=== PATIENT | male | born 1940 | race Caucasian/White ===

== ENCOUNTER 2020-02-03 18:09 | Emergency (ER) | payer MEDICARE, SELFPAY ==
--- NOTE | 2020-02-03 18:24 | ED.GENADULT ---
HPI - General Adult General Chief complaint: Wound/Laceration Stated complaint: laceration on finger Time Seen by Provider: 02/03/20 18:25 Source: patient and RN notes reviewed Mode of arrival: ambulatory Limitations: no limitations History of Present Illness HPI narrative: 79-year-old male presents concern for laceration to the second digit of his left hand that he sustained prior to arrival while using a bark grinder. He denies decreased sensation, decreased range of motion, decreased strength to the digit. He is not up-to-date on his tetanus vaccination. MD complaint: Finger laceration Related Data Home Medications Medication Instructions Recorded Confirmed aspirin 81 mg tablet,delayed 81 mg PO DAILY 09/29/19 02/03/20 release calcium carbonate 600 mg calcium 600 mg PO DAILY 12/08/19 02/03/20 (1,500 mg) tablet cholecalciferol (vitamin D3) 125 125 mcg PO DAILY 12/08/19 02/03/20 mcg (5,000 unit) capsule finasteride 5 mg tablet 5 mg PO DAILY 12/08/19 02/03/20 Allergies Allergy/AdvReac Type Severity Reaction Status Date / Time sulfamethizole Allergy Unknown hives Verified 02/03/20 18:13 sulfamethoxazole Allergy Unknown Hives / Verified 02/03/20 18:13 Red Face trimethoprim Allergy Unknown hives Verified 02/03/20 18:13 lisinopril AdvReac Intermediate cough Verified 02/03/20 18:13 Review of Systems Review of Systems: Narrative: CONSTITUTIONAL: Denies malaise, chills, sweats, or fever. CARDIOVASCULAR: Denies chest pain, palpitations RESPIRATORY: Denies dyspnea. SKIN: Reports laceration to the second digit of the left hand MUSCULOSKELETAL: Denies decreased strength, decreased range of motion to digit NEUROLOGIC: Denies numbness, weakness All systems reviewed & are unremarkable except as noted in HPI and below PMFSH Past Medical History Medical History (Updated 02/03/20 @ 19:03 by Shanti Miller NP) BP (high blood pressure) BPH associated with nocturia CAD (coronary artery disease) GERD (gastroesophageal reflux disease) Hammer toes of both feet Prostate CA Surgical History Surgical History (Updated 09/29/19 @ 20:38 by Adelaida Baugh MD) Status post radiation therapy Social History Social History (Updated 12/08/19 @ 11:10 by Dori Saxena Social History: Smoking status: Never smoker Second hand tobacco smoke exposure: No Alcohol intake: current Substance use: never Substance use type: does not use Gender identity (if verbalized by the patient): Male Comments At time of signature, agree with nursing past medical, surgical, social and family history. There is no relevant family history pertinent to the presenting complaint Exam Narrative: Exam Narrative: GENERAL: Well-appearing, well-nourished, and in no acute distress. HEAD: Normocephalic, atraumatic. EYES: PERRLA, conjunctivae clear NECK: Supple. CHEST: Speaks in full sentences. No respiratory distress. HEART: Regular rate and rhythm. Normal and equal peripheral pulses. EXTREMITIES: Right second digit has normal strength and sensation. 5/5 strength with digit flexion, extension. Range of motion normal. No clubbing, cyanosis, or edema noted. No tenderness. Skin intact. Normal digital cascade with flexion of fingers, median, ulnar and radial nerve intact. Normal sensation of each side of finger. Can perform 'okay' sign, 'cross over finger test of index and middle fingers' and 'thumbs up' sign. No scissoring. Normal thumb opposition. Good capillary refill and radial pulse. Distal capillary refill ?3 seconds. SKIN: Warm, dry, no rash. 2.5 cm linear, slightly irregular laceration into the deep tissue noted to the second digit of the left hand NEURO: Alert and oriented x3. PSYCH: Normal mood and affect Course Course Emergency Course: Patient is aware of diagnosis, understands and agrees to treatment plan. Anticipatory guidance given. Patient agrees to follow-up as directed and is aware of reasons to seek care
[2020-02-03 18:26] VITALS: BP 168/72; PULSE 85; RESP 20; TEMP 37.5; O2SAT 96
--- NOTE | 2020-02-03 19:01 | PC.NURSE ---
Unable to chart the Tetanus vaccination in the Dec. Lot #[id number] Exp: 09/28/20 Creative Writing Teacher: [employer]
== END 2020-02-03 19:10 | disposition home or self-care (01) ==
PROVIDERS: Emergency Provider Nurse Practitioner; PCP Family Medicine
DX: S61.211A Laceration without foreign body of left index finger without damage to nail, initial encounter (principal); W29.8XXA Contact with other powered hand tools and household machinery, initial encounter; Z23 Encounter for immunization; I10 Essential (primary) hypertension; N40.0 Benign prostatic hyperplasia without lower urinary tract symptoms; I25.10 Atherosclerotic heart disease of native coronary artery without angina pectoris; K21.9 Gastro-esophageal reflux disease without esophagitis; Z85.46 Personal history of malignant neoplasm of prostate
CPT/HCPCS: 12041; 90471; 90715; 99212; G0463

== ENCOUNTER 2020-07-29 23:23 | Emergency (ER) | payer MEDICARE, SELFPAY ==
--- NOTE | ~2020-07-29 | XR_ITS ---
XR chest 2V DATE: 07/30/2020 00:53 INDICATION: Shortness of breath, hypertension. History of coronary artery disease TECHNIQUE: PA and lateral views COMPARISON: 10/14/2018 PA and lateral chest FINDINGS: Mild cardiomegaly. Garfield B-lines are identified bilaterally, which may be an indication of pulmonary interstitial edema, interstitial pneumonitis or interstitial fibrosis. There is mild pulmo nary vascular congestion and redistribution, which favors interstitial edema. Aortic calcification and mild unfolding. There is minimal infiltrate or atelectasis in the lower lung zones. Diffuse osteopenia. There are multiple compression fracture deformities of the thoracic and lumbar spine. IMPRESSION: Cardiomegaly, mild congestive heart failure Mild bilateral lower lung infiltrate and/atelectasis Reviewed, dictated and finalized at location A.
[2020-07-29 23:26] VITALS: BP 221/98; PULSE 90; RESP 18; TEMP 36.4; O2SAT 98
[2020-07-29 23:39] VITALS: BP 170/102; PULSE 85; RESP 25; TEMP 36.6; O2SAT 97
--- NOTE | 2020-07-30 00:20 | ECG_ITS ---
Measurements Intervals [place] Rate: 83 P: 86 NM: 248 QRS: -40 QRSD: 105 T: 60 QT: 378 QTc: 444 Interpretive Statements SINUS RHYTHM WITH FIRST DEGREE AV BLOCK ATRIAL AND VENTRICULAR PREMATURE COMPLEXES LEFT AXIS DEVIATION INCOMPLETE RIGHT BUNDLE BRANCH BLOCK DELAYED PRECORDIAL R/S TRANSITION BASELINE ARTIFACT- I, II, III, AVR, AVL ABNORMAL ECG Electronically Signed On 07-30-2020 6:55:31 CDT by Christophe Taylor D.O.
[2020-07-30 00:47] LABS: Alanine Aminotransferase 21 U/L (4-50); Albumin Level 4.5 g/dL (3.5-5.1); Alkaline Phosphatase 60 U/L (38-126); Anion Gap 8 mmol/L (8-16); Aspartate Amino Transferase 19 U/L (17-59); Basophils Absolute Auto 0.1 K/mm3 (0.0-0.1); Basophils Percent Auto 0.6 % (0.2-1.2); Blood Urea Nitrogen 14 mg/dL (9-20); Calcium 9.3 mg/dL (8.4-10.2); Carbon Dioxide 31 mmol/L (22-30); Chloride 103 mmol/L (98-107); Eosinophils Absolute Auto 0.2 K/mm3 (0-0.3); Eosinophils Percent Auto 2.7 % (0-4.4); Estimated Glomerular Filt Rate > 60; Glucose 141 mg/dL (75-110); Hematocrit 42.7 % (42.0-52.0); Hemoglobin 14.5 g/dL (14.0-18.0); Immature Granulocyte Absolute 0.02 K/mm3 (0.00-0.031); Immature Granulocyte Percent A 0.2 % (0-0.5); Lymphocytes Absolute Auto 2.34 K/mm3 (0.9-3.2); Lymphocytes Percent Auto 27.7 % (18.3-44.2); Mean Corpuscular Hemoglobin 33.4 pg (26-34); Mean Corpuscular Volume 98.4 fl (80-100); Mean Platelet Volume 12.5 fl (7.4-10.4); Monocytes Absolute Auto 0.8 K/mm3 (0.1-0.6); Monocytes Percent Auto 9.1 % (2.6-8.5); Neutrophils Percent Auto 59.7 % (45.5-73.1); Platelet Count Result 142 k/mm3 (150-375); Potassium 3.6 mmol/L (3.4-5.0); Red Blood Count 4.34 M/mm3 (4.6-6.20); Red Cell Distribution Width 12.6 % (11.5-14.5); Sodium 142 mmol/L (137-145); White Blood Count 8.5 K/mm3 (4.5-10.0)
[2020-07-30 01:05] VITALS: BP 168/72; PULSE 59; RESP 16; O2SAT 97
--- NOTE | 2020-07-30 01:36 | ED.RECABL ---
HPI - Recheck/Abnormal Lab/Rx General Chief Complaint: Recheck/Abnormal Lab/Rx Stated Complaint: high bp Time Seen by Provider: 07/29/20 23:33 Source: patient Mode of arrival: ambulatory Limitations: no limitations History of Present Illness HPI narrative: This patient is a 79 year old male with history of hypertension who presents for evaluation of an elevated blood pressure. He has been checking his blood pressure every day for a few weeks. He states this morning his blood pressure was elevated to 190s so he took clonidine 0.1 mg. He has been prescribed clonidine to take as needed. He reports he checked his blood pressure tonight and it was still elevated so he came to ER because he did not want to have a stroke. He takes metoprolol 50 mg daily but he did not take that medication today because he took clonidine. His medication list also some losartan and lisinopril with HCTZ but he does not think he takes those medications. He denies chest pain, headache, dizziness. He does report he has been sob intermittent over the past couple of days. He is not sure of any exacerbating factors. He denies history of heart disease. He states he had a normal cardiac catheterization 3 years ago. complaint: other (elevated blood pressure) Related Data Home Medications Medication Instructions Recorded Confirmed aspirin 81 mg tablet,delayed 81 mg PO DAILY 09/29/19 02/03/20 release finasteride 5 mg tablet 5 mg PO DAILY 12/08/19 02/03/20 clonidine HCl 0.1 mg PO ONCE 07/29/20 ipratropium-albuterol [Combivent 1 puff INHALATION QID 07/29/20 Respimat] metoprolol succinate 25 mg PO QAM 07/29/20 triamcinolone acetonide TOPICAL 07/29/20 Allergies Allergy/AdvReac Type Severity Reaction Status Date / Time sulfamethizole Allergy Unknown hives Verified 07/29/20 23:42 sulfamethoxazole Allergy Unknown Hives / Verified 07/29/20 23:42 Red Face trimethoprim Allergy Unknown hives Verified 07/29/20 23:42 lisinopril AdvReac Intermediate cough Verified 07/29/20 23:42 Review of Systems Review of Systems: All systems reviewed & are unremarkable except as noted in HPI and below Constitutional: Constitutional: Denies chills and Denies fever(s) Cardiovascular: Cardiovascular: Denies chest pain Respiratory: Respiratory: Denies cough and Reports dyspnea Gastrointestinal: Gastrointestinal: Denies abdominal pain, Denies nausea and Denies vomiting [facility] Surgical History Surgical History (Updated 09/29/19 @ 20:38 by Adelaida Baugh MD) Status post radiation therapy Social History Social History Social History: Smoking status: Never smoker Second hand tobacco smoke exposure: No Alcohol intake: current Substance use: never Substance use type: does not use Gender identity (if verbalized by the patient): Male Exam Const: General: no acute distress and alert Orientation/consciousness: patient oriented x3 Eyes: Pupils: Equal, round and reactive pupils present EOM: EOMs intact bilaterally Neck: Neck: no lymphadenopathy Resp: Effort & Inspection: normal respiratory effort and no retractions Auscultation: clear to auscultation bilaterally Cardio: Rate: regular rate Rhythm: regular rhythm Heart sounds: no murmurs GI: GI Palp: Yes Soft to palpation, No Tenderness to palpation present (GI), No Guarding due to palpation present (GI), No Rigid due to palpation and Yes No hepatosplenomegaly present Skin: General skin exam: normal color Rashes: no rashes Neuro: General: patient oriented x3 and moves all extremities Extrem: General: edema bilateral (trace edema) Course Reevaluation(s) Reevaluation #1: PAtient has an appointment with PCP today. He denies having sob currently. He is laying flat in bed in no distress and denies any sob. He does have mild lower extremity edema. He may have some pulmonary edema on xray. Since BP 160
[2020-07-30 02:07] LABS: D Dimer < 0.22 ug/mL (<0.48)
[2020-07-30 02:14] LABS: NT Pro B Type Natriuretic Pept 1490 PG/ML (5-100)
[2020-07-30] MEDS: FUROSEMIDE INJ 40 MG/4 ML VIAL IV PUSH (02:37)
[2020-07-30 02:38] VITALS: BP 167/72; PULSE 61; RESP 20; O2SAT 98
[2020-07-30 03:52] VITALS: BP 159/74; PULSE 61; RESP 12; O2SAT 99
== END 2020-07-30 03:48 | disposition home or self-care (01) ==
PROVIDERS: Emergency Provider General Practice; PCP Family Medicine
DX: I10 Essential (primary) hypertension (principal); Z85.46 Personal history of malignant neoplasm of prostate; Z92.3 Personal history of irradiation; I25.10 Atherosclerotic heart disease of native coronary artery without angina pectoris; K21.9 Gastro-esophageal reflux disease without esophagitis; Z79.82 Long term (current) use of aspirin; I44.0 Atrioventricular block, first degree; I49.1 Atrial premature depolarization; I49.3 Ventricular premature depolarization; I45.10 Unspecified right bundle-branch block; R06.02 Shortness of breath
CPT/HCPCS: 36415; 71046; 80053; 83880; 84484; 85025; 85380; 93005; 96374; 99284; J1940

== ENCOUNTER 2020-09-22 10:30 | Emergency (ER) | payer MEDICARE, SELFPAY ==
--- NOTE | ~2020-09-22 | XR_ITS ---
XR hip LT min 2V DATE: 09/22/2020 11:25 INDICATION: Left hip pain, sudden onset 2 days ago. TECHNIQUE: AP and lateral views COMPARISON: None FINDINGS: There is mild chondrocalcinosis of left hip joint. No fracture or dislocation, avascular necrosis or bone destruction is evident. There is mild left hip osteoarthritis Status post posterior L4-5 spinal fusion. Severe degenerative disc disease at L5-S1. Several surgical clips overlie the pubic area. There is extensive iliac and femoral artery calcification. IMPRESSION: Chondrocalcinosis of left hip Mild osteoarthritis of the left hip joint Reviewed, dictated and finalized at location A. E RIGGER
[2020-09-22 10:46] VITALS: BP 139/60; PULSE 61; RESP 20; TEMP 36.9; O2SAT 100
--- NOTE | 2020-09-22 10:47 | ED.GENADULT ---
HPI - General Adult General Chief complaint: Extremity Problem,Nontraumatic Stated complaint: hip pain Time Seen by Provider: 09/22/20 10:47 Source: patient and RN notes reviewed Mode of arrival: ambulatory Limitations: no limitations History of Present Illness HPI narrative: 79 year old male who presents to [facility] care with complaints of severe pain to his left hip since evening with no stated injury. Patient states history of back fusion in the past and history of prostate cancer which was treated with radiation. Patient was recently seen by cardiology and started on Xarelto for irregular heart rhythm. Patient denies pain radiating down leg, denies any tingling or numbness to his left leg. Patient also reports that son in law just diagnosed with COVID on Thursday and daughter thinks she may have it and he had been around his daughter on but she was wearing a mask, patient denies any COVID symptoms at this time, cautioned that he should probably quarantine himself. MD complaint: left hip pain Onset (ago): day(s) (3) Location: left (hip) Radiation: non-radiation Severity: severe Severity scale (1-10): 9 Quality: sharp Relieving factors: rest Exacerbating factors: movement Associated symptoms: denies other symptoms Treatments prior to arrival: none Related Data Home Medications Medication Instructions Recorded Confirmed aspirin 81 mg tablet,delayed 81 mg PO DAILY 09/29/19 09/22/20 release rivaroxaban [Xarelto] 20 mg DAILY 09/22/20 09/22/20 Allergies Allergy/AdvReac Type Severity Reaction Status Date / Time sulfamethizole Allergy Unknown hives Verified 08/28/20 14:17 sulfamethoxazole Allergy Unknown Hives / Verified 08/28/20 14:17 Red Face trimethoprim Allergy Unknown hives Verified 08/28/20 14:17 lisinopril AdvReac Intermediate cough Verified 08/28/20 14:17 Review of Systems Review of Systems: Narrative: CONSTITUTIONAL: Denies fever, chills, or sweats. EYES: Denies visual changes, redness, or discharge. ENT: Denies rhinorrhea, congestion, sore throat, or otalgia.No lack of taste or smell CARDIOVASCULAR: Denies chest pain, palpitations, mild edema left ankle. RESPIRATORY: Denies cough or dyspnea.SAO2 100% on room air GASTROINTESTINAL: Denies abdominal pain, nausea, vomiting, or diarrhea. GENITOURINARY: Denies dysuria or hematuria. SKIN: Denies rash or itching. MUSCULOSKELETAL: Chronic back pain,severe left hip joint pain, or myalgia. NEUROLOGIC: Denies headache, numbness, or weakness. PSYCHIATRIC: Denies anxiety or depression.some forgetfulness. All systems reviewed & are unremarkable except as noted in HPI and below PMFSH Past Medical History Medical History (Updated 09/22/20 @ 12:41 by Margarette Banda NP) Acute diastolic CHF (congestive heart failure), NYHA class 2 BP (high blood pressure) BPH associated with nocturia CAD (coronary artery disease) GERD (gastroesophageal reflux disease) Hammer toes of both feet Irregular heart beat Prostate CA Surgical History Surgical History (Updated 09/22/20 @ 12:06 by Margarette Banda NP) History of lumbar spinal fusion Status post radiation therapy Family History Family History (Updated 09/22/20 @ 12:08 by Margarette Banda NP) Father Malignant neoplasm of prostate Heart disease Sibling Malignant neoplasm of prostate Heart disease Social History Social History (Updated 09/22/20 @ 12:06 by Margarette Banda NP) Social History: Smoking status: Never smoker Second hand tobacco smoke exposure: No Alcohol intake: never Substance use: never Substance use type: does not use Living arrangements: alone Gender identity (if verbalized by the patient): Male Comments At time of signature, agree with nursing past medical, surgical, social and family history. There is no relevant family history pertinent to the presenting complaint Exam Narrative: Exam Narrative: GENERAL: Well-appearing, well-nourished,
[2020-09-22] MEDS: methylPREDNISolone ACETATE 40 MG/ML VIAL IM (11:39)
--- NOTE | 2020-09-22 11:52 | PC.NURSE ---
Margarette KO called and spoke with son.
== END 2020-09-22 12:14 | disposition home or self-care (01) ==
PROVIDERS: Emergency Provider Registered Nurse; PCP Family Medicine
DX: M25.552 Pain in left hip (principal); M11.252 Other chondrocalcinosis, left hip; M16.12 Unilateral primary osteoarthritis, left hip; Z85.46 Personal history of malignant neoplasm of prostate; Z79.01 Long term (current) use of anticoagulants; I49.9 Cardiac arrhythmia, unspecified; I11.0 Hypertensive heart disease with heart failure; I50.9 Heart failure, unspecified; I25.10 Atherosclerotic heart disease of native coronary artery without angina pectoris; K21.9 Gastro-esophageal reflux disease without esophagitis
CPT/HCPCS: 73502; 96372; 99213; G0463; J1030

== ENCOUNTER 2021-03-04 12:26 | Emergency (ER) | payer MEDICARE, SELFPAY ==
--- NOTE | ~2021-03-04 | XR_ITS ---
XR shoulder LT min 2V DATE: 03/04/2021 13:42 INDICATION: Fall 5 days ago; left shoulder pain TECHNIQUE: 4 views COMPARISON: 06/14/2009 left shoulder FINDINGS: There is diffuse osteopenia. No fracture or dislocation, periosteal reaction or bone destruction or abnormal soft tissue calcifica tion is evident. Normal alignment at the left acromioclavicular and glenohumeral joints. Degenerative disc disease of the lower cervical and cervicothoracic spine. Thoracic scoliosis. Cardiomegaly and aortic atherosclerosis. IMPRESSION: Osteopenia No fracture or dislocation of the left shoulder is evident Reviewed, dictated and finalized at location A.
[2021-03-04 13:08] VITALS: BP 129/64; PULSE 62; RESP 16; TEMP 36.2; O2SAT 98
--- NOTE | 2021-03-04 13:17 | ED.UPPEXIN ---
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 Patient reports that he was putting down plastic and a stone bed when he tripped and hit his shoulder. Did not hit head. Denies neck and back pain. Denies chest pain/ SOB. Decreased ROM of the left shoulder. States that he had rotator cuff issues years ago and they would not do surgery on him because of age. States he is always had a decreased range of motion however it is worse. Related Data Home Medications Medication Instructions Recorded Confirmed ketoconazole 2 % shampoo TOPICAL 12/05/20 12/05/20 apixaban [Eliquis] mg 03/04/21 Allergies Allergy/AdvReac Type Severity Reaction Status Date / Time lisinopril Allergy Mild cough Verified 12/05/20 14:04 sulfamethizole Allergy Mild hives Verified 12/05/20 14:04 sulfamethoxazole Allergy Mild Hives / Verified 12/05/20 14:04 Red Face trimethoprim Allergy Mild hives Verified 12/05/20 14:04 Review of Systems Review of Systems: All systems reviewed & are unremarkable except as noted in HPI and below Constitutional: Constitutional: Reports no additional constitutional complaints Eyes: Eyes: Reports no additional eye complaints ENT: Reports system reviewed and no additional complaints, except as documented Cardiovascular: Cardiovascular: Reports no additional cardiovascular complaints and Denies chest pain Respiratory: Respiratory: Reports no additional respiratory complaints, Denies cough, Denies dyspnea and Denies wheezing Gastrointestinal: Gastrointestinal: Reports no additional gastrointestinal complaints, Denies abdominal pain, Denies nausea and Denies vomiting Musculoskeletal: Musculoskeletal: Reports as per HPI, Denies back pain, Reports arthralgias (Left shoulder) and Denies muscle cramps Integumentary/Breasts: Skin/Breast: Reports system reviewed and no additional complaints, except as docu Neurologic: Reports system reviewed and no additional complaints, except as documented, Denies dizziness, Denies syncope, Denies headache(s), Denies focal weakness, Denies numbness and Denies weakness [facility] Past Medical History Medical History (Updated 03/04/21 @ 14:00 by Shanti Powell) Acute diastolic CHF (congestive heart failure), NYHA class 2 BP (high blood pressure) BPH associated with nocturia CAD (coronary artery disease) GERD (gastroesophageal reflux disease) Hammer toes of both feet Irregular heart beat Prostate CA Surgical History Surgical History Amputated toe of left foot History of lumbar spinal fusion Status post radiation therapy Family History Family History Father Malignant neoplasm of prostate Heart disease Sibling Malignant neoplasm of prostate Heart disease Social History Social History Social History: Second hand tobacco smoke exposure: No Alcohol intake: never Substance use: never Substance use type: does not use Gender identity (if verbalized by the patient): Male Comments At the time of my signature, I reviewed and agree with the nursing past medical, surgical, social, and family history. There is no relevant family history pertinent to the patient complaint. Exam Const: General: healthy appearing, no acute distress and alert Nutritional Appearance: well nourished Orientation/consciousness: patient oriented x3 Other: Appears in mild discomfort Neck: Neck: normal visual inspection Chest: Chest palpation & inspection: normal inspection of th
== END 2021-03-04 14:02 | disposition home or self-care (01) ==
PROVIDERS: Emergency Provider Nurse Practitioner; PCP Family Medicine
DX: M25.512 Pain in left shoulder (principal); I11.0 Hypertensive heart disease with heart failure; I50.9 Heart failure, unspecified; I25.10 Atherosclerotic heart disease of native coronary artery without angina pectoris; K21.9 Gastro-esophageal reflux disease without esophagitis; Z85.46 Personal history of malignant neoplasm of prostate
CPT/HCPCS: 73030; 99213; A4565; G0463

== ENCOUNTER 2021-09-06 13:16 | Outpatient (CLI) | payer MEDICARE, SELFPAY ==
--- NOTE | ~2021-09-06 | MMUS_ITS ---
EXAMINATION: US breast RT complete, MM diagnostic mammo unilat RT HISTORY: Right breast lump TECHNIQUE: MLO and cc views of right breast; comparison MLO view of left breast. CAD analysis was sub mitted and interpreted. High resolution right complete breast ultrasound including all 4 quadrants an d subareolar area was performed. COMPARISON: None BREAST PARENCHYMAL COMPOSITION: There are scattered areas of fibroglandular density. FINDINGS: MAMMOGRAPHIC FINDINGS: Bilateral gynecomastia, mild on the right, minimal on the left. No suspicious mass, architectural distortion, malignant calcification, skin thickening or retraction is detected. ULTRASOUND: No suspicious mass or shadowing is detected. IMPRESSION: Mild right gynecomastia, minimal left gynecomastia BI-RADS Category 2: Benign finding(s). Reviewed, dictated and finalized at location A. E LINING CURER IMPRESSION: Mild right gynecomastia, minimal left gynecomastia BI-RADS Category 2: Benign finding(s).
== END 2021-09-06 13:17 | disposition home or self-care (01) ==
PROVIDERS: PCP Family Medicine; Visit Provider Physician Assistant
DX: N63.10 Unspecified lump in the right breast, unspecified quadrant (principal); N62 Hypertrophy of breast
CPT/HCPCS: 76641; 77065

== ENCOUNTER 2021-12-31 12:39 | Outpatient (CLI) | payer MEDICARE, SELFPAY ==
--- NOTE | ~2021-12-31 | MR_ITS ---
EXAMINATION: MRA brain wo con EXAM DATE: 12/31/2021 14:48 INDICATION: TIA, Episode Of Visual Disturbance . TECHNIQUE: 3-D [id number] MRA of the intracranial arteries was performed without contrast. There is no prior study for comparison. FINDINGS: Study is limited due to patient motion. There is normal flow related signal seen within the vertebral, basilar and internal carotid arteries. There is no proximal stenosis. There are no aneurysms identified. Both A1 and P1 segments are pat ent. Flow in the cerebral arteries is symmetric. Left vertebral artery is dominant. IMPRESSION: Normal MRA brain exam. Reviewed, dictated and finalized at location A. AND G[employer]TER LABORER IMPRESSION: Normal MRA brain exam.
--- NOTE | ~2021-12-31 | MR_ITS ---
EXAMINATION: MR brain/brain stem wo/w con EXAM DATE: 12/31/2021 14:48 INDICATION: TIA, Episode Of Visual Disturbance . TECHNIQUE: Magnetic resonance imaging (MRI) of the brain/brain stem obtained without contrast. Sagit ara T1, axial diffusion, gradient echo (T2*), T1, T2, FLAIR sequences obtained. Patient was then inj ected with 15 cc intravenous Multihance contrast. Axial and coronal postcontrast T1 weighted sequence s obtained. There is no prior study for comparison. FINDINGS: Signal abnormality in the left parotid gland measuring 1 cm, could be parotid mass or intra parotid lymph node. This could be cystic. Consider follow-up nonemergent CT neck or soft tissue ultra sound. There are no areas of restricted diffusion to suggest acute infarction. There is no acute hem orrhage seen on the T2*, a hemosiderin sensitive sequence. No intraparenchymal brain mass lesion. T here is moderate periventricular and subcortical T2/FLAIR signal hyperintensity, nonspecific but prob ably related to small vessel ischemic disease (microangiopathy). There is mild prominence of the alfaro lci and ventricles related to cerebral atrophy. There are no extra-axial collections. Flow voids a re seen in the cerebral arteries on the T2-weighted sequences consistent with their expected patency. The orbits are unremarkable. There are no areas of abnormal enhancement on the postcontrast image s. IMPRESSION: 1. No acute intracranial findings. 2. Chronic age related findings. 3. Incidental left parotid mass; consider ENT consult, CT neck with contrast, or soft tissue ultraso und. Reviewed, dictated and finalized at location A. UITWARE BRUSHER IMPRESSION: 1. No acute intracranial findings. 2. Chronic age related findings. 3. Incidental left parotid mass; consider ENT consult, CT neck with contrast, or soft tissue ultrasound.
--- NOTE | ~2021-12-31 | MR_ITS ---
EXAMINATION: MRA neck wo/w con EXAM DATE: 12/31/2021 14:48 INDICATION: TIA, Episode Of Visual Disturbance TECHNIQUE: Magnetic resonance angiography (MRA) of the neck was performed. Sequences included axial 2 D-time of flight T1-weighted FSPGR and coronal T1-weighted FSPGR without and then following injection of 50 mL MultiHance intravenous contrast. There is no prior study for comparison. FINDINGS: Left vertebral artery is dominant. There is 0% stenosis of the right carotid bulb relative to normal distal artery lumen diameter (NASCE T criteria). There is 0% stenosis of the left carotid bulb relative to normal distal artery lumen di ameter. Small left parotid mass, possibly cystic. IMPRESSION: 1. 0% stenosis of the right carotid bulb. 2. 0% stenosis of the left carotid bulb. Reviewed, dictated and finalized at location A. RONMENTAL HEALTH AND SAFETY MANAGER
[2021-12-31 13:35] LABS: Estimated Glomerular Filt Rate > 60
== END 2021-12-31 12:40 | disposition home or self-care (01) ==
LOC: ANHIMG 12:40
PROVIDERS: PCP Family Medicine; Visit Provider Internal Medicine Cardiovascular Disease
DX: G45.9 Transient cerebral ischemic attack, unspecified (principal); D11.0 Benign neoplasm of parotid gland; H53.8 Other visual disturbances
CPT/HCPCS: 70544; 70549; 70553; A9577

== ENCOUNTER 2022-06-06 14:33 | Outpatient (CLI) | payer MEDICARE, SELFPAY ==
--- NOTE | ~2022-06-06 | XR_ITS ---
XR sacroiliac joints min 3V 06/06/2022 15:08 Indication: Abnormal immunologic findings. Chronic pain. Procedure: 3 views of the sacroiliac joints Comparison: No prior studies for comparison. Findings: There is mild bilateral symmetric degenerative change of the sacroiliac joints. No erosive changes or ankylosis. There are spinal fusion changes of the lumbar spine. Osteopenia. Mild osteoarth ritis of the hips. Impression: 1: Mild bilateral symmetric degenerative change of the sacroiliac joints. Reviewed, dictated and finalized at location A. Impression: 1: Mild bilateral symmetric degenerative change of the sacroiliac joints.
--- NOTE | ~2022-06-06 | XR_ITS ---
XR lumbar spine 2-3V DATE: 06/06/2022 15:08 INDICATION: Chronic back pain TECHNIQUE: AP, lateral and coned lateral lumbosacral views COMPARISON: 10/14/2018 CT abdomen pelvis FINDINGS: There is diffuse osteopenia. Chronic mild anterior wedging at T10, T11 and T12, stable since 10/14/2018. Chronic mild compression fracture deformity of L2, stable since 10/14/2018. Status post posterior surgical fusion by pedicle screws and rods at L3-L5. Moderate degenerative disc disease at L2-3. Severe degenerative disc disease at L5-S1. No interval fracture since 10/14/2018 is detected. The sacroiliac joints are intact. There is extensive calcification of the abdominal aorta and common iliac arteries, without evidence o f aneurysm. IMPRESSION: Stable mild anterior wedging of T10, T11 and T12 and chronic mild compression fracture de formity of L2, not significantly changed since 10/14/2018 Osteopenia Posterior surgical fusion at L3-L5 is again noted Reviewed, dictated and finalized at location B. IMPRESSION: Stable mild anterior wedging of T10, T11 and T12 and chronic mild c ompression fracture deformity of L2, not significantly changed since 10/14/2018 Osteopenia Posterior surgical fusion at L3-L5 is again noted
[2022-06-06 15:54] LABS: Appearance Urine Clear (Clear); Bilirubin Urine Negative (Negative); Blood Urine Negative (Negative); Color Urine Yellow (Yellow); Glucose Urine UA Negative (Negative); Ketones Urine Negative (Negative); Leukocyte Esterase Ur Negative LEU/UL (Negative); Nitrate Urine Negative (Negative); Protein Urine Negative (Negative); Specific Grav Ur 1.015 (1.001-1.035); Urobilinogen Urine 0.2 mg/dL (<2.0)
[2022-06-06 15:59] LABS: Add Urine Microscopic? NO; Basophils Absolute Auto 0.1 K/mm3 (0.0-0.1); Basophils Percent Auto 0.5 % (0.2-1.2); Eosinophils Absolute Auto 0.1 K/mm3 (0-0.3); Eosinophils Percent Auto 0.5 % (0-4.4); Hematocrit 46.8 % (42.0-52.0); Hemoglobin 15.4 g/dL (14.0-18.0); Immature Granulocyte Absolute 0.03 K/mm3 (0.00-0.031); Immature Granulocyte Percent A 0.3 % (0-0.5); Immature Platelet Fraction Pct 9.9 % (0.9-11.2); Lymphocytes Percent Auto 23.8 % (18.3-44.2); Mean Corpuscular HGB Conc 32.9 g/dl (32-36); Mean Corpuscular Hemoglobin 33.4 pg (26-34); Mean Corpuscular Volume 101.5 fl (80-100); Mean Platelet Volume 11.7 fl (7.4-10.4); Monocytes Absolute Auto 0.7 K/mm3 (0.1-0.6); Monocytes Percent Auto 7.6 % (2.6-8.5); Neutrophils Absolute Auto 6.5 K/mm3 (1.3-6.7); Neutrophils Percent Auto 67.3 % (45.5-73.1); Platelet Count Result 145 k/mm3 (150-375); Red Blood Count 4.61 M/mm3 (4.6-6.20); Red Cell Distribution Width 12.4 % (11.5-14.5); White Blood Count 9.7 K/mm3 (4.5-10.0)
[2022-06-06 16:12] LABS: Alanine Aminotransferase 26 U/L (6-50); Albumin Level 4.4 g/dL (3.5-5.1); Alkaline Phosphatase 51 U/L (38-126); Anion Gap 8 mmol/L (8-16); Aspartate Amino Transferase 24 U/L (17-59); Bilirubin,Total 1.6 mg/dL (0.2-1.3); Blood Urea Nitrogen 17 mg/dL (9-20); CRP < 0.5 mg/dL (<1.0); Calcium 9.5 mg/dL (8.4-10.2); Carbon Dioxide 31 mmol/L (22-30); Chloride 98 mmol/L (98-107); Estimated Glomerular Filt Rate > 60; Glucose 113 mg/dL (65-110); Sodium 137 mmol/L (137-145)
[2022-06-06 16:13] LABS: Complement C3 96 mg/dL (88-165)
[2022-06-06 16:27] LABS: Erythrocyte Sedimentation Rate 1 mm/hr (0-20)
== END 2022-06-06 14:34 | disposition home or self-care (01) ==
PROVIDERS: PCP Nurse Practitioner Family; Visit Provider Internal Medicine
DX: R76.8 Other specified abnormal immunological findings in serum (principal); M47.812 Spondylosis without myelopathy or radiculopathy, cervical region; M47.816 Spondylosis without myelopathy or radiculopathy, lumbar region; M53.3 Sacrococcygeal disorders, not elsewhere classified; M85.88 Other specified disorders of bone density and structure, other site; Z98.1 Arthrodesis status
CPT/HCPCS: 36415; 72100; 72202; 80053; 81003; 85025; 85055; 85652; 86140; 86160

== ENCOUNTER 2025-05-10 13:45 | Outpatient (CLI) | payer MEDICARE, SELFPAY ==
--- NOTE | ~2025-05-10 | XR_ITS ---
EXAM: XR shoulder LT min 2V DATE: 05/10/2025 14:13 HISTORY: POSTERIOR PAIN IN LFT SHOULDER X 5 DAYS . COMPARISON: 03/04/2021. FINDINGS: Normal mineralization. No fracture or dislocation. No lytic or blastic lesion. Moderate de generative change at the AC joint. Left shoulder arthroplasty hardware, no hardware fracture or abnor mal perihardware lucency. No erosion or periosteal change. Soft tissues within normal limits. IMPRESSION: No acute osseous finding in the left shoulder. Uncomplicated appearing left shoulder arth roplasty hardware. Reviewed, dictated and finalized at location K. IMPRESSION: No acute osseous finding in the left shoulder. Uncomplicated appear ing left shoulder arthroplasty hardware.
--- OUTSIDE RECORDS SUMMARY | 2025-05-10 13:53 | XMS_ITS | Clinical Summary ---
Author Organization [facility] Address [address] [place] [address] Care Team Providers Care Grinding And Polishing Laborer Name Role Phone Chau Benoit DIRECT SUPPORT WORKER-OPTICIAN APPRENTICE DISPENSING Primary Care Provider + Source Comments [facility],non-owned Affiliates and Associated Physician Practices is amultiple site organization consisting of ambulatory clinics and hospital sitesin [place], [place], [place] and [place]. This disclosure is being madepursuant to the Care Everywhere program and may not contain all information available regarding this patient. Last updated 18.[facility] Allergies Active Allergy Reactions Criticality Noted Date Comments Losartan Other 03/23/2024 Sour taste in mouth Morphine Other High 07/11/2022 Low blood pressure . Low heart rate Low blood pressure . Low heart rate Sulfa Antibiotics Urticaria Medium 11/09/2017 Sulfa Drugs Urticaria Medium 11/09/2017 Sulfamethoxazole W-Trimethoprim Urticaria,Unknown Medium 12/22/2014 Tramadol Other 03/18/2023 Caused sores in mouth and no sense of taste Trimethoprim Urticaria Medium 11/09/2017 Medications * Be aware that medications may not be up to date on this document. Alwaysverify current medications with the patient. amLODIPine (Norvasc) 5 MG tablet Take 1 (one) tablet by mouth once daily 07/18/2024 Active Eliquis 5 MG tablet Take 1 (one) tablet by mouth 2 times daily 08/04/2024 Active atorvastatin (Lipitor) 20 MG tablet Take 1 (one) tablet by mouth once daily 08/15/2024 Active vitamin D3 (Cholecalcifero l) 125 MCG (5000 UT) capsule Take 1 (one) capsule by mouth once daily Active Jardiance 25 MG tablet Take 1 (one) tablet by mouth once daily Active finasteride (Proscar) 5 MG tablet Take 1 (one) tablet by mouth every morning Active furosemide (Lasix) 20 MG tablet Take 1 (one) tablet to 2 (two) tablets by mouth as directed Active olmesartan (Benicar) 40 MG tablet Take 1 (one) tablet by mouth once daily Active pantoprazole EC (Protonix) 40 MG tablet Take 1 (one) tablet by mouth every morning Active tamsulosin (Flomax) 0.4 MG capsule Take 1 (one) capsule by mouth once daily 08/14/2024 Active potassium chloride ER (Klor-Con M) 10 MEQ tablet Take 1 (one) tablet by mouth once daily Active Active Problems Problem Noted Date Diagnosed Date Longstanding persistent atrial fibrillation 02/24 Lumbar stenosis with neurogenic claudication Right inguinal hernia 01/15/2023 Overview (09/06/2024): Added automatically from request for surgery [id number] Chronic bilateral low back pain without sciatica 11/25/2022 Right rotator cuff tear 11/20/2022 S/P reverse total shoulder arthroplasty, left Left rotator cuff tear 08/08/2022 Complete tear of left rotator cuff 07/24/2022 Overview (09/06/2024): Added automatically from request for surgery [id number] Chronic diastolic congestive heart failure 06/17 Hypercholesteremia 06/17/2022 Parotid mass 06/17/2022 BPPV (benign paroxysmal positional vertigo) 06/2022 Episode of visual disturbance 12/10/2021 Chronic anticoagulation 04/24/2021 Dilated cardiomyopathy 04/24/2021 Coronary artery disease invo lving [place] coronary artery of [place] heart without angina pectoris 04/24/2021 Family history of premature CAD 04/24/2021 History of CHF (congestive heart failure) 2020 Nonrheumatic mitral valve regurgitation 04/24/20 Paroxysmal atrial flutter 04/24/2021 Enlarged prostate 11/19/2020 Bunion, right 01/11/2018 Bone spur 12/29/2017 Bunion, left 12/29/2017 Capsulitis 12/29/2017 Capsulitis 12/29/2017 Hammer toe 12/28/2017 Bunionette of left foot 12/28/2017 Abnormal stress test 11/09/2017 Overview (09/06/2024): Last Assessment & Plan: Patient had abnormal stress test as above, similar but not exactly the same to the stress test he had in 2011 which prompted his catheterization. He has no angina and if it were not for his frequent ventricular ectopy I probably would not pursue this mild abnormality. However he does have very frequent ventricular ectopy which is new and could be caused by cardiac ischemia. He will be leaving the country soon traveling and I feel it would be prudent to evaluate him further to make sure that he is in as good shape as possible for his long voyage. Last Assessment & Plan: Patient had abnormal stress test as above, similar but not exactly the same to the stress test he had in 2011 which prompted his catheterization. He has no angina and if it were not for his frequent ventricular ectopy I probably would not pursue this mild abnormality. However he does have very frequent ventricular ectopy which is new and could be caused by cardiac ischemia. He will be leaving the country soon traveling and I feel it would be prudent to evaluate him further to make sure that he is in as good shape as possible for his long voyage. Essential hypertension 11/09/2017 PVC's (premature ventricular contractions) 11/09 Overview (09/06/2024): Last Assessment & Plan: Frequent and sometimes complex ventricular ectopy which is asymptomatic. Consider hypokalemia (takes HCTZ), low magnesium, ischemia as etiologies. Knee pain 12/22/2014 Immunizations Immunization Administration Dates Next Due INFLUENZA VACCINE 09/25/2020, 9,09/20/2019,2017,08/20/2017 INFLUENZA VACCINE, ADJUVANTE D, TRIV. (FLUAD TRIVALENT; 65Y+) (AIIV3) 10/22/2018 INFLUENZA VACCINE, HIGH-DOSE , QUADR. (FLUZONE HIGH-DOSE QUADRIVALENT; 65Y+), 0.7 ML (HD-IIV4) 07/24/2024 PNEUMOCOCCAL PCV VACCINE 03/18/2023 RSV ABRYSVO PREG OR 60y+ 0.5mL 07/24/2024 TDAP (7yrs+) 12/21/2016 Zoster Hzv Vacc Recombinant Inj Im 07/24/2024 Social History Tobacco Use Types Packs/Day Years Used Date Smoking Tobacco: Never Smokeless Tobacco: Never PHQ-2 Answer Date Recorded Patient Health Questionnaire-2 Score 0 09/15/2024 Sex and Gender Information Value Date Recorded Sex Assigned at Not on file Legal Sex Male 7:19 AM BULB GROWER Gender Identity Not on file Sexual Orientation Not on file Plan of Treatment Health Maintenance Due Date Last Done Comments PNEUMOCOCCAL VACCINE 50+ (2 of 2 - PPSV23, PCV20, or PCV21) 05/13/2023 03/18/2023 COVID-19 VACCINE (4 - season) 2024 09/13/2021, 12/21/2020, 11/23/2020 ZOSTER VACCINE (2 of 2) 09/18/2024 07/24/2024 DEPRESSION SCREENING 10/26/2024 09/15/2024 MEDICARE AWV CALENDAR YEAR 2024 INFLUENZA VACCINE (#1) 2025 , 09/25/2020, 09/20/2019, Additional history exists DTAP/TDAP/TD VACCINES (2 - Td or Tdap) 12/21/2026 12/21/2016 Respiratory Syncytial Virus (RSV) Vaccine Pt: or over 60 yrs Completed 07/24/2024 HEPATITIS B VACCINE Aged Out No longe r eligible based on patient's age to complete this topic HIB VACCINE Aged Out No longer eligi ble based on patient's age to complete this topic HPV VACCINE Aged Out No longer eligi ble based on patient's age to complete this topic MENINGOCOCCAL (Group B) VACCINE SHARED DECISION-MAKING Aged Out No longer eligible based on patient's age to complete this topic MENINGOCOCCAL GROUPS A/C/Y/W VACCINE Aged Out No longer eligible based on patient's age to complete this topic Insurance [facility] MANAGED MEDICARE ADV Care Teams Grinding And Polishing Laborer Relationship Specialty Start Date End Date Chau Benoit APRN-ARCENIO [address] [facility] [address] [place] [address] PCP - General Nurse Practitioner 08/24/24
--- OUTSIDE RECORDS SUMMARY | 2025-05-10 13:53 | XMS_ITS | Encounter Summary ---
Author Organization [facility] Address [facility] [place] [address] Care Team Providers Care Field Naturalist Name Role Phone Chau Benoit GRAIN CLEANER Primary Care Provider [phone] Encounter Details Date Type Department Care Team (Late st Contact Info) Description 02/04/2023 Prep for Procedure [facility] One Day Services [id number] [place] [address] [place] [address] [facility] [address] [place] [address] Social History Tobacco Use Types Packs/Day Years Used Date Smoking Tobacco: Never Passive Smoke Exposure: Never Smokeless Tobacco: Never Alcohol Use Standard Drinks/Week Comments Never 0 (1 standard drink = 0.6 oz pur e alcohol) Social Connection and Isolat ion Panel [NHANES] Answer Date Recorded In a typical week, how many times do you talk on the phone with family, friends, or neighbors? More than three times a week 11/27/2020 Frequency of Social Gatherin gs with Friends and Family Not on file 11/27/2020 Attends Latter Day Services Not on file 11/27 Active Member of Clubs or Organizations Not on f ile 11/27/2020 Attends Club or Organization Meetings Not on liliana e 11/27/2020 Marital Status Not on file 11/27/2020 AUDIT-C Answer Date Recorded Q1: How often do you have a drink containing alc ohol? Monthly or less 12/12/2020 Q2: How many drinks containi ng alcohol do you have on a typical day when you are drinking? 1 or 2 12/12/2020 Q3: How often do you have si x or more drinks on one occasion? Never 12/12/2020 Overall Financial Resource Strain (CARDIA) Answe r Date Recorded How hard is it for you to pa y for the very basics like food, housing, medical care, and heating? Not hard at all 11/27/2020 PHQ-2 Answer Date Recorded Patient Health Questionnaire-2 Score 0 12/30/2022 [facility] - Occupational Stress Questionnaire Answer Date Recorded Do you feel stress - tense, restless, nervous, or anxious, or unable to sleep at night because your mind is troubled all the time - these days? Patient declined 11/27/2020 Exercise Vital Sign Answer Date Recorde d On average, how many days pe r week do you engage in moderate to strenuous exercise (like a brisk walk)? 3 days 11/27/2020 On average, how many minutes do you engage in exercise at this level? 20 min 11/27/2020 Hunger Vital Sign Answer Date Recorded Within the past 12 months, y ou worried that your food would run out before you got the money to buy more. Never true 11/27/19 21 Within the past 12 months, t he food you bought just didn't last and you didn't have money to get more. Never true 11/27/2020 PRAPARE - Transportation Answer Date Re corded In the past 12 months, has l ack of transportation kept you from medical appointments or from getting medications? No 11/2020 In the past 12 months, has l ack of transportation kept you from meetings, work, or from getting things needed for daily living? No 11/27/2020 Sex and Gender Information Value Date Recorded Sex Assigned at Male 08/22/2020 3:39 PM CDT Legal Sex Male 7:13 PM CDT Gender Identity Male 08/22/2020 3:39 PM CDT Sexual Orientation Straight 08/22/2020 3: 39 PM CDT COVID-19 Exposure Response Date Recorded In the last 10 days, have yo u been in contact with someone who was confirmed or suspected to have Coronavirus/COVID-19? No / Unsure 02/05/2023 11:33 AM CDT documented as of this encounter Plan of Treatment Upcoming Encounters Date Type Department Care Team (Late st Contact Info) Description 05/17/2025 1:00 PM CDT Office Visit [facility] [place] [phone] Usman Lowe MD [address] [facility] [address] [place] [address] 06/08/2025 2:00 PM CDT Office Visit [facility] [address] Remy Samson MD [address] [facility] [address] [place] [address] documented as of this encounter Results * ECG 12-Lead (02/05/2023 12:31 PM CDT) 02/05/2023 12:3 1 PM CDT Narrative [facility] SONAL RODRIGUEZ (B) RAD - 02/11/2023 6:16 AM CDT [place] [facility] Test Date: 2023-02-05 Pat Name: JASON WIN Department: 80 Room: Gender: Male Recycling Collections Driver: STEVE : 1940 Requested By: NIKOLAI GARNICA Order Number: [id number] Reading MD: Sixto Ackerman Measurements Intervals [place] Rate: 49 P: 65 [place]: 269 QRS: -45 QRSD: 145 T: 6 QT: 461 QTc: 420 Interpretive Statements SINUS BRADYCARDIA WITH FIRST DEGREE AV BLOCK RIGHT BUNDLE BRANCH BLOCK [120+ ms QRS DURATION, UPRIGHT V1, 40+ ms S IN I/aVL/V4/V5/V6] LEFT ANTERIOR FASCICULAR BLOCK [QRS AXIS <= -45, QR IN I, RS IN II] Compared to ECG 07/11/2022 13:54:54 Left anterior fascicular block now present Procedure Note Sixto Ackerman MD - 02/11/2023 [facility] Test Date: 2023-02-05 Pat Name: JASON WIN Department: 80 Room: Gender: Male Recycling Collections Driver: STEVE : 1940 Requested By: NIKOLAI GARNICA Order Number: [id number] Reading MD: Sixto Ackerman Measurements Intervals [place] Rate: 49 P: 65 [place]: 269 QRS: -45 QRSD: 145 T: 6 QT: 461 QTc: 420 Interpretive Statements SINUS BRADYCARDIA WITH FIRST DEGREE AV BLOCK RIGHT BUNDLE BRANCH BLOCK [120+ ms QRS DURATION, UPRIGHT V1, 40+ ms S IN I/aVL/V4/V5/V6] LEFT ANTERIOR FASCICULAR BLOCK [QRS AXIS <= -45, QR IN I, RS IN II] Compared to ECG 07/11/2022 13:54:54 Left anterior fascicular block now present us Nikolai Garnica MD ECG ORDERABLES Final Result [facility]) RAD * MRSA SCREENING (02/05/2023 12:12 PM CDT) SPEC DESCRIPTION NASAL 02/05/2023 12:10 PM CDT [facility] SPECIAL REQUESTS NO SPECIAL REQUEST 02/05/2023 12:10 PM CDT [facility] CULTURE RESULT NO METHICILLIN RESISTANT STAPHYLOCOCCUS AUREUS ISOLATED 02/06/2023 3:02 PM CDT [facility] SPECIMEN FROM INTERNAL NOSE / Unknown 02/05/2023 12:12 PM CDT 02/05/2023 12:13 PM CDT us Nikolai Garnica MD MICROBIOLOGY - GENERAL ORDERABLE S Final Result [facility] [address] [place] [address], documented in this encounter Visit Diagnoses Diagnosis Preop testing- Primary Preoperative examination, unspecified Preop testing Preoperative examination, unspecified documented in this encounter Additional Health Concerns Infection Onset Date Last Indicated Resolved Time COVID-19 Rule Out 10/16/2023 10/16/2023 10/16/2023 2:25 PM TRUCK ASSEMBLER COVID-19 Confirmed 10/16/2023 10/16/2023 12:32 AM TRUCK ASSEMBLER documented as of this encounter Care Teams Field Naturalist Relationship Specialty Start Date End Date Chau Benoit FNP [address] [address] PCP - General NURSE PRACTITIONER 01/31/22 documented as of this encounter
--- OUTSIDE RECORDS SUMMARY | 2025-05-10 13:53 | XMS_ITS | Encounter Summary ---
Author Organization [facility] Address [facility] [place] [address] Care Team Providers Care Batch Trucker Name Role Phone Adelaida Baugh MD Primary Care Provider [phone] Chau Benoit Primary Care Provider [phone] Encounter Details Date Type Department Care Team (Late st Contact Info) Description 09/26/2020 Prep for Procedure [facility] [address] [place] [address] Ryder Holland, DPM [address] [place] [phone] Social History Tobacco Use Types Packs/Day Years Used Date Smoking Tobacco: Never Smokeless Tobacco: Never Alcohol Use Standard Drinks/Week Comments Not Currently 0 (1 standard drink = 0.6 oz pur e alcohol) PHQ-2 Answer Date Recorded PHQ-2 Score - If the patient scores above 3, please move on to questions 3-9 0 08/22/2020 Sex and Gender Information Value Date Recorded Sex Assigned at Male 08/22/2020 3:39 PM CDT Legal Sex Male 7:13 PM CDT Gender Identity Male 08/22/2020 3:39 PM CDT Sexual Orientation Straight 08/22/2020 3: 39 PM CDT COVID-19 Exposure Response Date Recorded In the last month, have you been in contact with someone who was confirmed or suspected to have Coronavirus / COVID-19? No / Unsure 09/26/2020 3:37 PM MORTAR WORKER documented as of this encounter Plan of Treatment Upcoming Encounters Date Type Department Care Team (Late st Contact Info) Description 05/17/2025 1:00 PM CDT Office Visit [facility] [place] [address] [place] [phone] Usman Lowe MD [address] [facility] [facility], [place] [address] [place], [place] [id number] 06/08/2025 2:00 PM CDT Office Visit [facility] [address] [place] [address] Remy Samson MD Three [facility]. [place] [address] [place], [place] [phone] documented as of this encounter Visit Diagnoses Not on filedocumented in this encounter Additional Health Concerns Infection Onset Date Last Indicated Resolved Time COVID-19 Rule Out 11/26/2020 11/26/2020 11/27/2020 10:45 AM MORTAR WORKER COVID-19 Rule Out 10/16/2023 10/16/2023 10/16/2023 2:25 PM MORTAR WORKER COVID-19 Confirmed 10/16/2023 10/16/2023 12:32 AM MORTAR WORKER documented as of this encounter Care Teams Batch Trucker Relationship Specialty Start Date End Date Adelaida Baugh MD [address] [facility] [address] [place] [place] [address] PCP - General FAMILY PRACTICE 08/08/20 01/30/22 Chau Benoit FNP [address] [place] [address] PCP - General NURSE PRACTITIONER 01/31/22 documented as of this encounter
--- OUTSIDE RECORDS SUMMARY | 2025-05-10 13:53 | XMS_ITS | Encounter Summary ---
Author Organization [facility] Address [facility] [place] [address] Care Team Providers Care Product Sales Engineer Name Role Phone Adelaida Baugh MD Primary Care Provider [phone] Chau Benoit Primary Care Provider [phone] Encounter Details Date Type Department Care Team (Late st Contact Info) Description 11/26/[address] [facility] One Day Services [address] [place] [address] Ryder Holland, DPKenneth [address] [place] [phone] Social History Tobacco Use Types Packs/Day Years Used Date Smoking Tobacco: Never Smokeless Tobacco: Never Alcohol Use Standard Drinks/Week Comments Yes 0 (1 standard drink = 0.6 oz pur e alcohol) rare Social Connection and Isolat ion Panel [NHANES] Answer Date Recorded In a typical week, how many times do you talk on the phone with family, friends, or neighbors? More than three times a week 11/27/2020 Frequency of Social Gatherin gs with Friends and Family Not on file 11/27/2020 Attends Sikhism Services Not on file 11/27 Active Member of Clubs or Organizations Not on f ile 11/27/2020 Attends Club or Organization Meetings Not on liliana e 11/27/2020 Marital Status Not on file 11/27/2020 Overall Financial Resource Strain (CARDIA) Answe r Date Recorded How hard is it for you to pa y for the very basics like food, housing, medical care, and heating? Not hard at all 11/27/2020 PHQ-2 Answer Date Recorded PHQ-2 Score - If the patient scores above 3, please move on to questions 3-9 0 08/22/2020 [facility] Occupat ional Health - Occupational Stress [...] have Coronavirus / COVID-19? No / Unsure 11/27/2020 7:21 AM PHOTOGRAPHIC PRINTER documented as of this encounter Plan of Treatment Upcoming Encounters Date Type Department Care Team (Late st Contact Info) Description 05/17/2025 1:00 PM CDT Office Visit [facility] [place] [address] [place] [address] Usman Lowe MD [address] [facility], [place] [address] [place] [address] 06/08/2025 2:00 PM CDT Office Visit [facility] [address] [place] [address] Remy Samson MD Three [facility]. [place] [address] [place], [place] [phone] documented as of this encounter Visit Diagnoses Diagnosis Pre-op testing- Primary Preoperative examination, unspecified documented in this encounter Additional Health Concerns Infection Onset Date Last Indicated Resolved Time COVID-19 Rule Out 11/26/2020 11/26/2020 11/27/2020 10:45 AM PHOTOGRAPHIC PRINTER COVID-19 Rule Out 10/16/2023 10/16/2023 10/16/2023 2:25 PM PHOTOGRAPHIC PRINTER COVID-19 Confirmed 10/16/2023 10/16/2023 12:32 AM PHOTOGRAPHIC PRINTER documented as of this encounter Care Teams Product Sales Engineer Relationship Specialty Start Date End Date Adelaida Baugh MD [address] [place] [address] PCP - General FAMILY PRACTICE 08/08/20 01/30/22 Chau Benoit FNP [address] [place] [address] PCP - General NURSE PRACTITIONER 01/31/22 documented as of this encounter
--- OUTSIDE RECORDS SUMMARY | 2025-05-10 13:53 | XMS_ITS | Referral Summary ---
Author Organization [facility] [address] Address [address] [place] [address] Care Team Providers Care Nuclear Technologist Name Role Phone Chau Benoit BLOCK OUT MACHINE OPERATOR Primary Care Provider [phone] Allergies Active Allergy Reactions Criticality Noted Date Comments Morphine Other (See comments) High 07/11/2022 Low blood pressure . Low heart rate Sulfa (Sulfonamide Antibiotics) Hives Medium 11/09/2017 Sulfamethoxazole-Trimet hoprim Unknown,Hives Medium 12/22/2014 Trimethoprim Hives Medium 11/09/2017 Medications tamsulosin (FLOMAX) 0.4 mg capsule,extende d release 24hr Take 1 capsule (0.4 mg total) by mouth nightly 7 Active finasteride (PROSCAR) 5 mg tablet Take 1 tablet (5 mg total) by mouth nightly 3 7 Active metoprolol XL (TOPROL-XL) 25 mg 24 hr tablet Take 1 tablet (25 mg total) by mouth cinder worker before breakfast 1 9 Active furosemide (LASIX) 20 mg tablet Take 1 tablet (20 mg total) by mouth 2 (two) times a day Take 1-2 tabs daily prn swelling 0 Active losartan (COZAAR) 100 mg tablet Take 1 tablet (100 mg total) by mouth cinder worker before breakfast [address] (PROTONIX) 40 mg EC tablet Take 1 tablet (40 mg total) by mouth daily Active atorvastatin (LIPITOR) 20 mg tabletIndicatio ns:Coronary artery disease involving [place] coronary artery of [place] heart without angina pectoris Take 1 tablet (20 mg total) by mouth daily 90 tablet 3 1 Active cholecalciferol (VITAMIN D-3) 5,000 unit capsule Take 1 capsule (5,000 Units total) by mouth 2 (two) times a day Active iy-[id number]-lyc op-herb#222 (Stages Men's Multi-Vitamin) 200 mcg-300 unit-20 mcg tablet Take by mouth Active apixaban (Eliquis) 5 mg tablet Take 1 tablet (5 mg total) by mouth 2 (two) times a day 180 tablet 1 2 Active acetaminophen 500 mg capsuleIndicati ons:Pain Take 2 capsules (1,000 mg total) by mouth every 6 (six) hours 90 tablet 2 Active Active Problems Problem Noted Date Diagnosed Date Left rotator cuff tear 08/08/2022 Complete tear of left rotator cuff 07/24/2022 Overview (07/24/2022): Added automatically from request for surgery [id number] Hypercholesteremia 06/17/2022 Chronic diastolic congestive heart failure 06/17 Parotid mass 06/17/2022 BPPV (benign paroxysmal positional vertigo) 08/0 06/2022 Episode of visual disturbance 12/10/2021 Coronary artery disease invo lving [place] coronary artery of [place] heart without angina pectoris 04/24/2021 Paroxysmal atrial flutter 04/24/2021 Chronic anticoagulation 04/24/2021 Dilated cardiomyopathy 04/24/2021 Nonrheumatic mitral valve regurgitation 04/24/20 21 Family history of premature CAD 04/24/2021 History of CHF (congestive heart failure) 2020 Bone spur 12/29/2017 Capsulitis 12/29/2017 Hammer toe 12/28/2017 PVC's (premature ventricular contractions) 11/09 Assessment & Plan (11/09/2017 5:04 PM COMMUNITY PLANNER): Frequent and sometimes complex ventricular ectopy which is asymptomatic. Consider hypokalemia (takes HCTZ), low magnesium, ischemia as etiologies. Abnormal stress test 11/09/2017 Assessment & Plan (11/09/2017 5:00 PM COMMUNITY PLANNER): Patient had abnormal stress test as above, [...] for his long voyage. Essential hypertension 11/09/2017 Ventricular ectopic complex 11/09/2017 Overview (07/16/2022): Last Assessment & Plan: Frequent and sometimes complex ventricular ectopy which is asymptomatic. Consider hypokalemia (takes HCTZ), low magnesium, ischemia as etiologies. Knee pain 12/22/2014 Enlarged prostate Immunizations Immunization Administration Dates Next Due Influenza, Quad, Adjuvantated, Intramuscular Influenza, Quadrivalent, Hig h Dose, Preservative Free, Intrr 09/25/2020 Influenza, Trivalent, Adjuvanted, Intramuscular 10/22/2018 Influenza, Trivalent, High D ose, Split, Preservative Free, Intramuscular 08/20/2017 Influenza, Unspecified 09/20/2019,08/20/2017 Tdap 12/21/2016 Social History Tobacco Use Types Packs/Day Years Used Date Smoking Tobacco: Never Passive Smoke Exposure: Never Smokeless Tobacco: Never Tobacco Cessation:Counseling Given: Not Answered Alcohol Use Standard Drinks/Week Comments Yes 0 (1 standard drink = 0.6 oz pur e alcohol) Social AUDIT-C Answer Date Recorded Q1: How often do you have a drink containing alc ohol? Monthly or less 08/08/2022 Q2: How many drinks containi ng alcohol do you have on a typical day when you are drinking? 1 or 2 08/08/2022 Q3: How often do you have si x or more drinks on one occasion? Never 08/08/2022 Sex and Gender Information Value Date Recorded Sex Assigned at Not on file Legal Sex Male 2:07 AM COMMUNITY PLANNER Gender Identity Not on file Sexual Orientation Not on file Last Filed Vital Signs Vital Sign Reading Time Taken Comments Blood Pressure 110/48 06/10/2023 3:49 PM CDT Pulse 68 06/10/2023 3:49 PM CDT Temperature 36.7 C (98 F) 08/09/2022 8:20 AM CDT Respiratory Rate 18 08/09/2022 3:50 AM CDT Oxygen Saturation 94% 06/10/2023 3:49 PM CDT Inhaled Oxygen Concentration - - Weight 87.5 kg (193 lb) 06/10/2023 3:49 PM CDT Height 180.3 cm (5' 11) 06/10/2023 3:49 PM CDT Body Mass Index 26.92 06/10/2023 3:49 PM CDT Plan of Treatment Not on file Medical Devices Implanted Type Area Licensing Specialist Device Identifier Shelf Expiration Date Model / Serial / Lot [employer]ornier Aequalis Perform 25mm Lateralize Augment Reverse Shoulder [id number] - [id number] - [id number] Implanted:Qty : 1 on 08/08/2022 by Faisal Puga MD at [facility] Other - see comments Left: Shoulder [employer] [id number] 05/22/2027 [id number] / [id number] / Description:Base plate Implant pause performed [employer]ornier Aequalis Perform 15mm Press Fit Long Post Shoulder [id number] - [id number] - [id number] Implanted:Qty : 1 on 08/08/2022 by Faisal Puga MD at [facility] Other - see comments Left: Shoulder [employer] [id number] 03/28/2027 [id number] / [id number] / Description:Post Implant pause performed [employer] Aequalis Perform Reversed 5mm 30mm Peripheral Glenoid Screw [id number] - [id number] Implanted:Qty : 1 on 08/08/2022 by Faisal Puga MD at [facility] Left: Shoulder [employer] [id number] / / [employer] Aequalis Perform Reversed 5mm 34mm Peripheral Glenoid Screw [id number] - [id number] Implanted:Qty : 1 on 08/08/2022 by Faisal Puga MD at [facility] Left: Shoulder [employer] [id number] / / [employer] Tornier Aequalis Perform 39mm Reverse Shoulder Standard Sphere Exm904 - [id number] - [id number] Implanted:Qty : 1 on 08/08/2022 by Faisal Puga MD at [facility] Left: Shoulder [employer] [id number] 03/24/2027 [id number] / [id number] / [employer] Stem Perform Sz 3 Plus Humeral Long [id number] - [id number] - [id number] Implanted:Qty : 1 on 08/08/2022 by Faisal Puga MD at [facility] Left: Shoulder [employer] [id number] 03/07/2027 [id number] / [id number] / [employer] Insert Perform 10 Deg Avh3812 [id number] - [id number] - [id number] Implanted:Qty : 1 on 08/08/2022 by Faisal Puga MD at [facility] Left: Shoulder [employer] [id number] 02/20/2026 [id number] / [id number] / Insurance [facility] MEDICARE [facility] Address: [facility] [address] [place] [address] MEDICARE ADVANTAGE [facility] Address: [address] [address] MEDICARE ADVANTAGE [facility] MEDIC[facility] Address: [address] [address] Advance Directives For more information, please contact: [phone] * Full Code (Latest Code Status on File) Date Activated Date Inactivated Comments 08/08/2022 1:20 PM 08/09/2022 5:13 PM Care Teams Nuclear Technologist Relationship Specialty Start Date End Date Chau Benoit NP PCP - General Family Medicine 06/17/22
--- OUTSIDE RECORDS SUMMARY | 2025-05-10 13:53 | XMS_ITS | Clinical Summary ---
Author Organization [facility] Address [facility] [place] [address] Care Team Providers Care Test Equipment Mechanic Name Role Phone BenoitChau TYPEWRITER OPERATOR AUTOMATIC Primary Care Provider Allergies Active Allergy Reactions Criticality Noted Date Comments Sitagliptin Other (see comment) 12/28/2024 Left shoulder pain and acid reflex. Empagliflozin Other (see comment),Fatigue 04/05/2025 Sour taste in mouth Losartan Other (see comment) 03/23/2024 Sour taste in mouth Morphine Other (see comment) High 07/11/2022 Low blood pressure . Low heart rate Sulfa Antibiotics Hives Medium 11/09/2017 Sulfamethoxazole-Trimeth oprim Hives,Unknown Medium 12/22/2014 Tramadol Other (see comment) 03/18/2023 Caused sores in mouth and no sense of taste Trimethoprim Hives Medium 11/09/2017 Medications vitamin D3, cholecalciferol, 5000 UNITS capsule Take 1 capsule (5,000 Units total) by mouth daily. Active furosemide (LASIX) 20 MG tabletIndications:Esse ntial hypertension TAKE 2 TABLETS IN THE MORNING AND TAKE 1 TABLET IN THE EVENING 270 tablet 3 2023 Active olmesartan (BENICAR) 40 MG tabletIndications:Esse ntial hypertension Take 1 tablet by mouth once daily 90 tablet 3 2023 Active tamsulosin (FLOMAX) 0.4 MG CapIndications:Benign prostatic hyperplasia with weak urinary stream Take 1 capsule by mouth in the morning 90 capsule 3 2023 Active atorvastatin (LIPITOR) 20 MG tabletIndications:Pure hypercholesterolemia Take 1 tablet by mouth once daily 90 tablet 3 2023 Active finasteride (PROSCAR) 5 MG tabletIndications:Benji gn prostatic hyperplasia with weak urinary stream take 1 tablet by mouth in the morning 90 tablet 3 2023 Active ELIQUIS 5 MG tabletIndications:Doris nary artery disease involving andreafski coronary artery of andreafski heart without angina pectoris Take 1 tablet by mouth twice daily 180 tablet 2 2023 Active lidocaine (LIDODERM) 5 % PLACE 1 PATCH ONTO THE SKIN DAILY FOR 30 DAYS. REMOVE AND DISCARD PATCH WITHIN 12 HOURS OR DIRECTED BY MD. 2023 Active potassium chloride CR (MICRO-K) 10 MEQ CR capsuleIndications:Ess ential hypertension Take 1 capsule by mouth once daily 90 capsule 3 2024 Active Additional Information Patient not taking.Reported on 04/05/2025 pantoprazole EC (PROTONIX) 40 MG tabletIndications:Marissa roesophageal reflux disease without esophagitis Take 1 tablet (40 mg total) by mouth 2 (two) times daily. 60 tablet 5 2024 Active pioglitazone (ACTOS) 15 MG tabletIndications:Type 2 diabetes mellitus without complication, without long-term current use of insulin ([facility]) Take 1 tablet (15 mg total) by mouth daily. 90 tablet 1 2024 Active amLODIPine (NORVASC) 5 MG tabletIndications:Esse ntial hypertension TAKE 1 TABLET BY MOUTH ONCE DAILY 90 tablet 3 2024 Active amLODIPine (NORVASC) 5 MG tabletIndications:Esse ntial hypertension Take 1 tablet by mouth once daily 90 tablet 3 04/27 Discontinued Active Problems Problem Noted Date Diagnosed Date Type 2 diabetes mellitus wit hout complication, without long-term current use of insulin ([facility]) 04/05/2025 Regurgitation of food 02/23/2025 Gastroesophageal reflux disease without esophagi tis 02/23/2025 Longstanding persistent atri al fibrillation ([facility]) 03/16/2024 Lumbar stenosis with neurogenic claudication Right inguinal hernia 01/15/2023 Overview (01/15/2023): Added automatically from request for surgery [id number] Chronic bilateral low back pain without sciatica 11/25/2022 Right rotator cuff tear 11/20/2022 S/P reverse total shoulder arthroplasty, left Left rotator cuff tear 08/08/2022 Complete tear of left rotator cuff 07/24/2022 Overview (09/02/2022): Added automatically from request for surgery [id number] Chronic diastolic congestive heart failure ([facility]) 06/17/2022 Hypercholesteremia 06/17/2022 Parotid mass 06/17/2022 BPPV (benign paroxysmal positional vertigo) 06/2022 Episode of visual disturbance 12/10/2021 Chronic anticoagulation 04/24/2021 Coronary artery disease invo lving andreafski coronary artery of andreafski heart without angina pectoris 04/24/2021 Dilated cardiomyopathy ([facility]) 021 History of CHF (congestive heart failure) 2020 Family history of premature CAD 04/24/2021 Nonrheumatic mitral valve regurgitation 04/24/20 21 Paroxysmal atrial flutter ([facility]) 03/28 Enlarged prostate 11/19/2020 Bunion, right 01/11/2018 Bone spur 12/29/2017 Bunion, left 12/29/2017 Capsulitis 12/29/2017 Bunionette of left foot 12/28/2017 Hammer toe 12/28/2017 Abnormal stress test 11/09/2017 Overview (12/28/2024): Last Assessment & Plan: Patient had abnormal stress test as above, similar but not exactly the same to the stress test he had in 2012 which prompted his catheterization. He has no [...] to the stress test he had in 2012 which prompted his catheterization. He has no [...] hypertension 11/09/2017 Ventricular ectopic complex 11/09/2017 Overview (11/19/2020): Last Assessment & Plan: Frequent and sometimes complex ventricular ectopy which is asymptomatic. Consider hypokalemia (takes HCTZ), low magnesium, ischemia as etiologies. PVC's (premature ventricular contractions) 11/09 Overview (02/03/2022): Last Assessment & Plan: Frequent and sometimes complex ventricular ectopy which is asymptomatic. Consider hypokalemia (takes HCTZ), low magnesium, ischemia as etiologies. Knee pain 12/22/2014 Resolved Problems Problem Noted Date Diagnosed Date Resolved Date Encounter for preventive health examination 12/15/2017 11/26/2020 Encounters Date Type Department Care Team Description 04/06/2025 Medication Management [facility] [address] [place] [address] Chau Benoit FNP 04/05/2025 2:00 PM CDT Office Visit [facility] [address] [place] [address] Chau Benoit FNP Annual (Wellness. ) 04/05/2025 Travel 04/03/2025 10:45 AM CDT Office Visit [facility] General Surgery - [address], [address] [place] [address] Chaparro Bui, Postop Followup (Upper Endoscopy 03/16/2025) 04/03/2025 Travel 03/30/2025 Patient Outreach [facility] [address] [place] [address] Hilda Alebrts MA Pre-visit [place] Closure 03/22/2025 Telephone [facility] [place], [place] [id number] Chaparro Bui, DO Results 03/16/2025 8:15 AM CDT - 03/16/2025 9:00 AM CDT Surgery [facility] [address] [place] [address] Chaparro Bui, DO Upper Endoscopy with biopsies 03/16/2025 8:06 AM CDT Anesthesia Event [facility] [address] [place] [address] Reynaldo Bui CRNA Rani, Swaroop, MD 03/16/2025 7:06 AM CDT - 03/16/2025 9:26 AM CDT Hospital Encounter [facility] [id number] [place] [address] Chaparro Bui, DO Discharge Disposition: Home or Self Care (Routine Discharge) 03/16/2025 Travel 03/02/2025 Scan HEALTH INFO SRVCS Scanned, [facility] 02/23/2025 Prep for Procedure [facility] General Surgery [facility] [id number] [place] [address], [address] [place] [address] Chaparro Bui, 02/22/2025 10:45 AM CDT Office Visit [address], [address] [place] [address] Chau Benoit, TYPEWRITER OPERATOR AUTOMATIC Chaparro Bui, DO GERD (With epigastric pain) 02/22/[address], [address] [place] [address] Chaparro Bui, DO Surgical Clearance 02/22/2025 Travel from Last 3 Months Immunizations Immunization Administration Dates Next Due Abrysvo Respiratory Syncytia l Virus (RSV) 0.5 mL, PF 07/24/2024 Fluad influenza vaccine, Natanael drivalent (aIIV4), Inactivated, adjuvanted, preservative free, 0.5 mL,IM use 10/22/2018 Fluzone High Dose (IIV, trivalent, 0.5mL) 2023 Fluzone High Dose - >Age 65 (Prefilled Syringe) 09/25/2020,09/20/2019,08/20/2017 MODERNA COVID-19 (12+) MRNA, LNP-S, PF, 100 MCG/ 0.5 ML DOSE 12/21/2020,11/23/2020 MODERNA COVID-19 (EMERGENCY MANAGEMENT PROGRAM SPECIALIST ITALIA CAIT), MRNA, LNP-S, PF, 50 MCG/ 0.25 ML DOSE 09/13/2021 Pneumococcal (Prevnar 20) 03/18/2023 Shingrix 07/24/2024 Tdap (Boostrix) 12/21/2016 Family History Medical History Relation Comments Dementia Brother 1 Hypertension Brother 2 None Daughter Atrial fibrillation Sister 1 Hypertension Sister 1 Dementia Sister 2 Heart Disease Sister 3 Heart Disease Sister 4 None Son 1 None Son 2 None Son 3 Relation Status Comments Brother 1 Brother 2 Daughter Alive Father Mother Sister 1 Sister 2 Sister 3 Alive Sister 4 Alive Son 1 Son 2 Alive Son 3 Alive Social History Tobacco Use Types Packs/Day Years Used Date Smoking Tobacco: Never Passive Smoke Exposure: Never Smokeless Tobacco: Never Tobacco Cessation:Counseling Given: Not Answered Alcohol Use Standard Drinks/Week Comments Yes 3.3 (1 standard drink = 0.6 oz p ure alcohol) occ. Social Connection and Isolat ion Panel [NHANES] Answer Date Recorded In a typical week, how many times do you talk on the phone with family, friends, or neighbors? More than three times a week 11/27/2020 Frequency of Social Gatherin gs with Friends and Family Not on file 11/27/2020 Attends Spiritism Services Not on file 11/27 Active Member [...] Date Recorded Patient Health Questionnaire-2 Score 0 04/05/2025 [facility] - Occupational Stress [...] Orientation Straight 08/22/2020 3: 39 PM CDT Last Filed Vital Signs Vital Sign Reading Time Taken Comments Blood Pressure 116/60 04/05/2025 2:03 PM CDT Pulse 65 04/05/2025 2:03 PM CDT Temperature 37.1 C (98.7 F) 04/05/2025 2:03 PM CDT Respiratory Rate 18 04/05/2025 2:03 PM CDT Oxygen Saturation 99% 04/05/2025 2:03 PM CDT Inhaled Oxygen Concentration - - Weight 87.5 kg (193 lb) 04/05/2025 2:03 PM CDT Height 180.3 cm (5' 11) 04/05/2025 2:03 PM CDT Body Mass Index 26.92 04/05/2025 2:03 PM CDT Plan of Treatment Upcoming Encounters Date Type Department Care Team (Late st Contact Info) Description 05/17/2025 1:00 PM CDT Office Visit [facility] [address] [address] Usman Lowe MD [address] [place] [address], [address] [address] 06/08/2025 2:00 PM CDT Office Visit [facility] [address] [place] [address] Remy Samson MD [facility]. [place] [address] [place] [address] Health Maintenance Due Date Last Done Comments Kidney Health Evaluation 1940 Annual Medicare Wellness Visit 2006 COVID-19 Vaccine ( season) 2024 09/13/2021, 12/21/2020, 11/23/2020 Zoster Vaccines (2 of 2) 09/18/2024 07/24/2024 ASCVD LDL 03/25/2025 03/25/2024, 06/0 10/2022, 01/30/2022 Lipid Panel 03/25/2025 03/25/2024, 06/0 10/2022, 06/17/2022, Additional history exists Hemoglobin A1C 06/08/2025 12/09/2024, 08/26, 03/25/2024, Additional history exists Diabetes: Retinopathy Eye Exam 04/05/2026 Postponed from 1959 (Future Appointment) DTaP, Tdap and Td Vaccines (2 - Td or Tdap) 12/21/2026 12/21/2016 Pneumococcal Vaccine: 50+ Years Completed 03/18/2023 RSV Immunization or 60+ Years Completed 07/24/2024 PHQ-2 (Physician [place]) Completed 04/05/2025 Meningococcal B Vaccine Aged Out No l onger eligible based on patient's age to complete this topic Meningococcal Vaccine Aged Out No [place] kwame eligible based on patient's age to complete this topic RSV Immunizations Under 20 Months Aged Out No longer eligible based on patient's age to complete this topic Medical Devices Implanted Type Area Trailer Truck Driver Device Identifier Shelf Expiration Date Model / Serial / Lot Plug Hernia Light Mesh Xlarge - [id number] Implanted:Qty: 1 on 02/12/2023 by Nikolai Tavares MD at [facility] Mesh Right: Abdomen [employer] - [employer] 07/23/2027 [id number] / / [id number] Mesh Bard Marlex 3 X 6 [id number] - [id number] Implanted:Qty: 1 on 02/12/2023 by Nikolai Tavares MD at [facility] Mesh Right: Abdomen [employer] - [employer] 06/22/2027 [id number] / / [id number] Plate Plate Spine Lumbar On-Q Antimicrobial Expansion Kits With Silversoaker Antimicrobial Catheter Implanted:Qty: 1 on 02/12/2023 by Nikolai Tavares MD at [facility] Right: Abdomen [employer] [id number] 04/12/2025 [id number] / / [id number] Procedures Procedure Name Priority Date/Time Associated Diagnosis Comments UPPER GI ENDOSCOPY,BIOPSY 03/16/2025 8:05 AM CDT Regurgitation of food Gastroesophageal reflux disease, unspecified whether esophagitis present Case Notes C EGD Routine 03/16/2025 7:13 AM CDT PATHOLOGY Routine 03/16/2025 12:00 AM CDT HEMOGLOBIN, GLYCOSYLATED Routine 12/09/2024 1:54 PM LEGAL AID Type 2 diabetes mellitus with hyperglycemia, without long-term current use of insulin ([facility]) Stage 3a chronic kidney disease ([facility]) LIPID PANEL Routine 03/25/2024 11:43 AM CDT Essential hypertension Paroxysmal atrial flutter Pure hypercholesterolem ia Vitamin D deficiency Type 2 diabetes mellitus without complication, without long-term current use of insulin from Last 3 Months or Most Recently Relevant to Health Maintenance Results * Pathology (03/16/2025 12:00 AM CDT) PATHOLOGY [facility] Department of Laboratory Medicine [address] [place] [phone] , extension [phone] Pathology Report Surgical Pathology Report Name: JOSE WIN Specimen #: [id number] Age: 1 1940 (Age: 84) Location: [facility] Sex: M Procedure Date: 03/16/2025 Hospital #: [id number] Date Received: 03/17/2025 Date Reported: 03/21/2025 Provider: CHAPARRO BUI DO Source: A: Gastric biopsies B: GE junction, biopsies Clinical History: Regurgitation of food and GERD FINAL DIAGNOSIS: A. Stomach, biopsy: - Transitional body/antral mucosa with mild chronic inactive gastritis. - No evidence of intestinal metaplasia, dysplasia, or malignancy. - Helicobacter pylori organisms are not identified. B. Gastroesophageal junction, biopsy: - Squamocolumnar junction mucosa with mild chronic inflammation. - No evidence of intestinal metaplasia. Gross Description: A. Received in formalin, labeled with a patient label and as gastric biopsy, are 3 portions of white-funez soft tissue ranging from 0.2 to 0.3 cm in greatest dimension. The specimen is entirely submitted in cassette A1. B. Received in formalin, labeled with a patient label and as GE junction biopsy, are 3 portions of white-funez soft tissue ranging from 0.2 to 0.6 cm in greatest dimension. The specimen is entirely submitted in cassette B1. Gross examination (when applicable), interpretation, and sign out were performed at [facility], [address] [place] [address]. Electronically Signed Out BRADLEY LUNDY MD [facility] TISSUE GASTRIC BIOPSY SPECIMEN / Unknown 03/16/2025 8:15 AM CDT Comment:To rule out H. Pylor i Tissue specimen (specimen) ESOPHAGEAL STRUCTURE / Unknown 03/16/2025 8:16 AM CDT Comment:To rule out Granger' s Esophagus Chaparro Bui DO PATHOLOGY/CYTOLOGY ORDERABLES Final Result [facility] [address] [place] [address] [id number] * (ABNORMAL) HEMOGLOBIN, GLYCOSYLATED (12/09/2024 1:54 PM LEGAL AID) HGB A1C 6.5(H) <5.7 % 12/15/2024 4:40 PM LEGAL AID [facility] Comment: ADA GUIDELINES 2010 5.7 TO 6.4% INCREASED RISK OF DIABETES > OR = 6.5% CONSISTENT WITH DIABETES TESTING PERFORMED AT [address] [address] ESTIMATED AVG GLUCOSE 140 mg/dL 12/15/2024 4:40 PM LEGAL AID [facility] 12/09/2024 1:54 PM LEGAL AID us Chau Benoit TYPEWRITER OPERATOR AUTOMATIC LABORATORY Final Resul t [facility] [address] [place] [address], * LIPID PANEL (03/25/2024 11:43 AM CDT) CHOLESTEROL 118 <200 MG/DL 03/25/2024 1:27 PM CDT [facility] TRIGLYCERIDES 55 <150 MG/DL 03/25/2024 1:27 PM CDT [facility] HDL 55 >40.0 MG/DL 03/25/2024 1:27 PM T [facility] LDL (CALCULATED) 52 <100 MG/DL 03/25/20 1:27 PM CDT [facility] NON HDL CHOLESTEROL 63 <130 MG/DL 03/25 1:27 PM CDT [facility] Comment: NOTE: WHEN THE TRIGLYCERIDES ARE >200 mg/dL, NON HDL C IS A SECONDARY TARGET OF THERAPY, WITH A GOAL 30 mg/dL HIGHER THAN THE IDENTIFIED LDL C GOAL. CHOL/HDL RATIO 2.1 0.0 - 4.5 03/25/2024 1:27 PM CDT [facility] VLDL CALCULATION 11 5 - 55 MG/DL 03/25/2024 1:27 PM T [facility] LIPID INTERPRETATION 03/25/2024 1:27 PM T [facility] Comment: NIH CONCENSUS REPORT RECOMMENDATIONS: ADULT CHILD LOW RISK: CHOLESTEROL <200 <170 TRIGLYCERIDE <150 --- HDL >=60 --- LDL <100 <110 BORDERLINE: CHOLESTEROL 200-239 170-199 TRIGLYCERIDE 150-199 --- HDL 40-59 --- LDL 100-159 110-129 HIGH RISK: CHOLESTEROL >=240 >=200 TRIGLYCERIDE >=200 --- HDL <40 --- LDL >=160 >=130 03/25/2024 11:4 3 AM CDT [facility] Final Resul t [facility] [address] [place] [address], [place] [phone] from Last 3 Months or Most Recently Relevant to Health Maintenance Insurance [facility] Advance Directives * Full Code (Latest Code Status on File) Date Activated Date Inactivated Comments 11/27/2020 10:15 AM 11/27/2020 2:13 PM Care Teams Test Equipment Mechanic Relationship Specialty Start Date End Date Chau Benoit FNP [address] [facility] [address] [place] [address] PCP - General NURSE PRACTITIONER 01/31/22
--- OUTSIDE RECORDS SUMMARY | 2025-05-10 13:53 | XMS_ITS | Clinical Summary ---
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 1 9 Active furosemide (LASIX) 20 mg tablet Take 1 tablet (20 mg total) by mouth 2 (two) times a day Take 1-2 tabs daily prn swelling 0 Active losartan (COZAAR) 100 mg tablet Take 1 tablet (100 mg total) by mouth pre k special education teacher before breakfast [address] (PROTONIX) 40 mg EC tablet Take 1 tablet (40 mg total) by mouth daily Active atorvastatin (LIPITOR) 20 mg tabletIndicatio ns:Coronary artery disease involving [place] coronary artery of [place] heart without angina pectoris Take 1 tablet (20 mg total) by mouth daily 90 tablet 3 1 Active cholecalciferol (VITAMIN D-3) 5,000 unit capsule Take 1 capsule (5,000 Units total) by mouth 2 (two) times a day Active [id number]-lyc op-herb#222 (Stages Men's Multi-Vitamin) 200 mcg-300 unit-20 [...] (07/24/2022): Added automatically from request for surgery [id number] Hypercholesteremia 06/17/2022 Chronic diastolic congestive heart failure 06/17 Parotid mass 06/17/2022 BPPV (benign paroxysmal positional vertigo) 08/0 06/2022 Episode of visual disturbance 12/10/2021 Coronary artery disease invo lving [place] coronary artery of [place] heart without angina pectoris 04/24/2021 Paroxysmal atrial flutter 04/24/2021 Chronic anticoagulation 04/24/2021 Dilated cardiomyopathy 04/24/2021 Nonrheumatic mitral valve regurgitation 04/24/20 21 Family history of premature CAD 04/24/2021 History of CHF (congestive heart failure) 2020 Bone spur 12/29/2017 Capsulitis 12/29/2017 Hammer toe 12/28/2017 PVC's (premature ventricular contractions) 11/09 Assessment & Plan (11/09/2017 5:04 PM [place]PLE MEAT CUTTER): Frequent and sometimes complex ventricular ectopy which is asymptomatic. Consider hypokalemia (takes HCTZ), low magnesium, ischemia as etiologies. Abnormal stress test 11/09/2017 Assessment & Plan (11/09/2017 5:00 PM [place] MEAT CUTTER): Patient had abnormal stress test as above, [...] Intramuscular 08/20/2017 Influenza, Unspecified 09/20/2019,08/20/2017 Tdap 12/21/2016 Surgical History Surgery Date Site/Laterality Comments BACK SURGERY 10/26/2009 - 10/25/2010 L3-5 fusion w/ instrumentation TOE AMPUTATION 11/26/2020 - 12/23/2020 TONSILLECTOMY COLONOSCOPY Medical History Medical History Date Comments Hypertension Diverticulitis Acid indigestion Enlarged prostate Cancer (HCC) 2016 Prostate cancer status post radiation therapy Diverticulitis GERD (gastroesophageal reflux disease) Atrial flutter (HCC) 08/2020 LV dysfunction 08/2020 Mitral valve regurgitation 08/2020 Ulcerative colitis (HCC) 1970's PVC's (premature ventricular contractions) Family History Medical History Relation Name Comments Heart attack Brother of [place] age 79 Heart disease Brother Hypertension Brother Heart attack Father of [place] age 68 Heart disease Father Hypertension Father Heart disease Mother of heart disease age 45 Alzheimer's disease Other Family Heart attack Sister 1 of [place] age 78 Heart disease Sister 1 Hypertension Sister 1 Hypertension Sister 2 Kala pacemaker Sister 2 [place] Arrhythmia Sister 3 Kandy Needed a heart shock pacemaker Sister 3 Kandy Anesthesia problems Neg Hx Relation Name Status Comments Brother Father Mother Other Family Alive Sister 1 Sister 2 [place]ala Alive Sister 3 Kandy Alive Social History Tobacco Use Types Packs/Day [...] on file Legal Sex Male 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 Gender Identity Not on file Sexual Orientation Not on file Obstetrics History Last Filed Vital Signs Vital Sign Reading [...] 06/10/2023 3:49 PM CDT Plan of Treatment Health Maintenance Due Date Last Done Comments Depression Screening 1941 Hepatitis B Screening 1959 Pneumococcal vaccine 65+ (1 of 2 - PCV) 1960 Zoster Vaccine (1 of 2) 1991 Well Visit 65+ 2006 Fall Risk Assessment 08/09/2023 08/09/2022 Covid-19 Vaccine (4 - 2023-2 5 season) 2024 09/13/2021, 12/21/2020, 11/23/2020 Influenza Vaccine (Season Ended) 2025 09/25/2020, 09/20/2019, 10/22/2018, Additional history exists DTaP/Tdap/Td Vaccine (2 - Td or Tdap) 12/21/2026 12/21/2016 Medical Devices Implanted Type Area Manufacturing Development Engineer Device Identifier Shelf Expiration Date Model / Serial / Lot [employer] Tornier Aequalis Perform 25mm Lateralize Augment Reverse Shoulder [id number] - [id number] - [id number] Implanted:Qty : 1 on 08/08/2022 by Faisal Puga MD at [facility] Other - see comments Left: Shoulder [employer] [id number] 05/22/2027 [id number] / [id number] / Description:Base plate Implant pause performed [employer] Tornier Aequalis Perform 15mm Press Fit Long Post Shoulder [id number] - [id number] - [id number] Implanted:Qty : 1 on 08/08/2022 by Faisal Puga MD at [facility] Other - see comments Left: Shoulder [employer] [id number] 03/28/2027 [id number] / [id number] / Description:Post Implant pause performed [employer] Aequalis Perform Reversed 5mm 30mm Peripheral Glenoid Screw [id number] - [id number] Implanted:Qty : 1 on 08/08/2022 by Faisal Puga MD at [facility] Left: Shoulder [employer] [id number] / / [employer] Aequalis Perform Reversed 5mm 34mm Peripheral Glenoid Screw [id number] - [id number] Implanted:Qty : 1 on 08/08/2022 by Faisal Puga MD at [facility] Left: Shoulder [employer] [id number] / / [employer] Tornier Aequalis Perform 39mm Reverse Shoulder Standard Sphere [id number] - [id number] - [id number] Implanted:Qty : 1 on 08/08/2022 by Faisal Puga MD at [facility] Left: Shoulder [employer] [id number] 03/24/2027 [id number] / [id number] / [employer] Stem Perform Sz 3 Plus Humeral Long [id number] - [id number] - [id number] Implanted:Qty : 1 on 08/08/2022 by Faisal Puga MD at [facility] Left: Shoulder [employer] [id number] 03/07/2027 [id number] / [id number] / [employer] Insert Perform 10 Deg [id number] - [id number] - [id number] Implanted:Qty : 1 on 08/08/2022 by Faisal Puga MD at [facility] Left: Shoulder [employer] [id number] 02/20/2026 [id number] / [id number] / Insurance [id number] [place] [address] [facility] MEDICARE ADVANTAGE [facility] MEDICARE ADVANTAGE Advance Directives For more information, please contact: [phone] * Full Code (Latest Code Status on File) Date Activated Date Inactivated Comments 08/08/2022 1:20 PM 08/09/2022 5:13 PM Care Teams Joinery Factory Worker Relationship Specialty Start Date End Date Chau Benoit NP PCP - General Family Medicine 06/17/22
--- OUTSIDE RECORDS SUMMARY | 2025-05-10 13:53 | XMS_ITS | Encounter Summary ---
Author Organization [facility] Address [facility] [place] [address] Care Team Providers Care Fiscal Agent Name Role Phone Adelaida Baugh MD Primary Care Provider [phone]- [phone] Chau Benoit Primary Care Provider [phone] Encounter Details Date Type Department Care Team (Late st Contact Info) Description 11/21/2020 Prep for Procedure [facility] [address] [place] [address] Ryder Holland, DPKenneth [address] [place] [id number] Social History Tobacco Use Types Packs/Day Years Used Date Smoking Tobacco: Never Smokeless Tobacco: Never Alcohol Use Standard Drinks/Week Comments Yes 0 (1 standard drink = 0.6 oz pur e alcohol) rare PHQ-2 Answer Date Recorded PHQ-2 Score - [...] have Coronavirus / COVID-19? No / Unsure 11/23/2020 2:15 PM BOOKSTORE CLERK documented as of this encounter Plan of Treatment Upcoming Encounters Date Type Department Care Team (Late st Contact Info) Description 05/17/2025 1:00 PM CDT Office Visit [facility] [place] [address] [place] [address] Usman Lowe MD 3 [facility] [address] [place], [place] [id number] 06/08/2025 2:00 PM CDT Office Visit [facility] [address] [place] [address] Remy Samson MD Three [facility]. [facility] [address] [place], [place] [id number] documented as of this encounter Visit Diagnoses Diagnosis Pre-op testing- Primary Preoperative examination, unspecified documented in this encounter Additional Health Concerns Infection Onset Date Last Indicated Resolved Time COVID-19 Rule Out 11/26/2020 11/26/2020 11/27/2020 10:45 AM BOOKSTORE CLERK COVID-19 Rule Out 10/16/2023 10/16/2023 10/16/2023 2:25 PM BOOKSTORE CLERK COVID-19 Confirmed 10/16/2023 10/16/2023 12:32 AM BOOKSTORE CLERK documented as of this encounter Care Teams Fiscal Agent Relationship Specialty Start Date End Date Adelaida Baugh MD [address] [facility] [address] [place] [address] PCP - General FAMILY PRACTICE 08/08/20 01/30/22 Chau Benoit FNP [address] [facility] [address] [place] [address] PCP - General NURSE PRACTITIONER 01/31/22 documented as of this encounter
--- OUTSIDE RECORDS SUMMARY | 2025-05-10 13:53 | XMS_ITS | Encounter Summary ---
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 amputation left - toe with metatarsal head ( [id number]) Ryder Holland DPM Phone: tel: fax: Ryder Holland DPM Phone: tel: fax: Referral ID Status Reason Start Date Expiration Date V isits Requested Visits Authorized [id number] Canceled 09/26/2020 10/27/2021 1 1 MOBILE BODY REPAIR CHIEF Encounter Details Date Type Department Care Team (Late st Contact Info) Description 09/26/2020 Prep for Procedure [facility] [address] [place] [address] Ryder Holland DPM [address] [place] [address] Social History Tobacco Use Types Packs/Day [...] COVID-19? No / Unsure 09/26/2020 3:37 PM AUTOMOBILE BODY REPAIR CHIEF documented as of this encounter Plan of Treatment Upcoming Encounters Date Type Department Care Team (Late st Contact Info) Description 05/17/2025 1:00 PM CDT Office Visit [facility] [address] [address] Usman Lowe MD [address] [address] 06/08/2025 2:00 PM CDT Office Visit [facility] [address] Remy Samson MD Three [facility]. [facility] [address] [place], [place] [id number] documented as of this encounter Visit Diagnoses Diagnosis Prophylactic antibiotic- Primary Encounter for long-term (current) use of antibiotics documented in this encounter Additional Health Concerns Infection Onset Date Last Indicated Resolved Time COVID-19 Rule Out 11/26/2020 11/26/2020 11/27/2020 10:45 AM AUTOMOBILE BODY REPAIR CHIEF COVID-19 Rule Out 10/16/2023 10/16/2023 10/16/2023 2:25 PM AUTOMOBILE BODY REPAIR CHIEF COVID-19 Confirmed 10/16/2023 10/16/2023 12:32 AM AUTOMOBILE BODY REPAIR CHIEF documented as of this encounter Care Teams Assistant Curator Relationship Specialty Start Date End Date Adelaida Baugh MD [address] [facility] [address] [place] [address] PCP - General FAMILY PRACTICE 08/08/20 01/30/22 Chau Benoit FNP [address] [facility] [address] [place] [address] PCP - General NURSE PRACTITIONER 01/31/22 documented as of this encounter
== END 2025-05-10 13:46 | disposition home or self-care (01) ==
PROVIDERS: PCP Family Medicine; Visit Provider Nurse Practitioner Family
DX: M25.512 Pain in left shoulder (principal); Z96.612 Presence of left artificial shoulder joint
CPT/HCPCS: 73030

== ENCOUNTER 2025-08-29 10:16 | Outpatient (CLI) | payer MEDICARE, SELFPAY ==
[2025-08-29 11:09] LABS: Hematocrit 50.5 % (42.0-52.0); Hemoglobin 16.7 g/dL (14.0-18.0); Immature Granulocyte Percent A 0.2 % (0-0.5); Lymphocytes Absolute Auto 1.94 K/mm3 (0.9-3.2); Mean Corpuscular HGB Conc 33.1 g/dl (32-36); Mean Corpuscular Hemoglobin 33.1 pg (26-34); Mean Corpuscular Volume 100.0 fl (80-100); Nucleated Red Blood Cells Absolute Auto 0.000 K/mm3 (0.0-0.012); Nucleated Red Blood Cells Perc 0.0 % (0.0-0.2); Platelet Count Result 148 k/mm3 (150-375); Red Blood Count 5.05 M/mm3 (4.6-6.20); White Blood Count 8.9 K/mm3 (4.5-10.0)
[2025-08-29 11:30] LABS: Hemoglobin A1C 6.7 % (<5.7)
--- OUTSIDE RECORDS SUMMARY | 2025-08-29 11:42 | XMS_ITS | Clinical Summary ---
Author Organization [facility] Address [address] [place] [address] Care Team Providers Care Methods Specialist Engineer Name Role Phone Chau Benoit PRODUCTION MINER-NETWORK CONTROL SUPERVISOR Primary Care Provider + Source Comments [facility],non-owned Affiliates and Associated Physician Practices is amultiple site organization consisting of ambulatory clinics and hospital sitesin [place], [place], [place] and [place]. This disclosure is being madepursuant to the Care Everywhere program and may not contain all information available regarding this patient. Last updated 18.[facility] [place] Allergies Active Allergy Reactions Criticality Noted Date [...] (09/06/2024): Added automatically from request for surgery [id number] Chronic bilateral low back pain without sciatica 11/25/2022 Right rotator cuff tear 11/20/2022 S/P reverse total shoulder arthroplasty, left Left rotator cuff tear 08/08/2022 Complete tear of left rotator cuff 07/24/2022 Overview (09/06/2024): Added automatically from request for surgery [id number] Chronic diastolic congestive heart failure 06/17 Hypercholesteremia 06/17/2022 Parotid mass 06/17/2022 BPPV (benign paroxysmal positional vertigo) 06/2022 Episode of visual disturbance 12/10/2021 Chronic anticoagulation 04/24/2021 Dilated cardiomyopathy 04/24/2021 Coronary artery disease invo lving [place] coronary artery of [place] heart without angina pectoris 04/24/2021 Family history [...] on file 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 Gender Identity Not on file Sexual Orientation Not on file Plan of Treatment Health Maintenance Due Date Last Done Comments PNEUMOCOCCAL VACCINE 50+ (2 of 2 - PPSV23, PCV20, or PCV21) 05/13/2023 03/18/2023 ZOSTER VACCINE (2 of 2) 09/18/2024 07/24/2024 DEPRESSION SCREENING 10/26/2024 09/15/2024 MEDICARE AWV CALENDAR YEAR 2024 COVID-19 VACCINE ( - season) 2025 09/13/2021, 12/21/2020, 11/23/2020 INFLUENZA VACCINE (#1) 2025 , 09/25/2020, 09/20/2019, [...] patient's age to complete this topic Insurance [facility] MANAGED MEDICARE ADV Care Teams Methods Specialist Engineer Relationship Specialty Start Date End Date Chau Benoit APRN-ARCENIO [address] [facility] [address] [place] [address] PCP - General Nurse Practitioner 08/24/24
[2025-08-29 11:52] LABS: Alanine Aminotransferase 21 U/L (6-50); Albumin Level 4.3 g/dL (3.5-5.1); Alkaline Phosphatase 59 U/L (38-126); Anion Gap 8 mmol/L (4-12); Aspartate Amino Transferase 26 U/L (17-59); Bilirubin,Total 1.9 mg/dL (0.2-1.3); Blood Urea Nitrogen 18 mg/dL (9-20); Calcium 9.1 mg/dL (8.4-10.2); Carbon Dioxide 30 mmol/L (22-30); Chloride 101 mmol/L (98-107); Cholesterol 112 mg/dL (0-200); Estimated Glomerular Filt Rate > 60; Glucose 152 mg/dL (65-110); HDL Direct 46 mg/dL; Potassium 4.3 mmol/L (3.4-5.0); Sodium 139 mmol/L (137-145); Total Protein 7.1 g/dL (6.3-8.2); Triglycerides 73 mg/dL (<150)
== END 2025-08-29 10:17 | disposition home or self-care (01) ==
PROVIDERS: PCP Family Medicine; Visit Provider Nurse Practitioner Family
DX: R73.9 Hyperglycemia, unspecified (principal); I25.10 Atherosclerotic heart disease of native coronary artery without angina pectoris; Z13.1 Encounter for screening for diabetes mellitus; Z13.220 Encounter for screening for lipoid disorders
CPT/HCPCS: 36415; 80053; 80061; 83036; 85025